=== PATIENT | male | born 1985 | race African-American/Black ===

== ENCOUNTER 2017-03-03 20:16 | Emergency (ER) | payer SELFPAY ==
[2017-03-03 21:21] VITALS: BP 131/83
[2017-03-03] MEDS ORDERED: IBUPROFEN 800 MG TABLET PO ONE (21:59)
--- NOTE | 2017-03-03 22:00 | ER Document Report ---
HPI - HPI Patient complains to provider of: headache, vomiting Onset: Other - 4days Pain Level: 4 Context: Patient presents to the emergency department with complaints of head hurting throwing up on and off since Thursday. Reports vomited last time Thursday. Denies fever. Reports he wakes up he'll have a headache he'll take some Tylenol and headache will go away but it comes back. Patient does have history of high blood pressure and is taking medication for it. Denies trauma. No vomiting today, denies abdominal pain. Associated Symptoms: Vomiting Exacerbated by: Denies Relieved by: Denies Similar symptoms previously: No Recently seen / treated by doctor: No - REPRODUCTIVE Reproductive: DENIES: : - DERM Skin Color: Normal Past Medical History - General Information source: Patient - Social History Smoking Status: Unknown if Ever Smoked Cigarette use (# per day): No Frequency of alcohol use: None Drug Abuse: None Lives with: Family Family History: DM, Hypertension Patient has suicidal ideation: No Patient has homicidal ideation: No - Past Medical History Cardiac Medical History: Reports: Hx Hypertension - on meds Denies: Hx Coronary Artery Disease, Hx Heart Attack Pulmonary Medical History: Denies: Hx Asthma, Hx Bronchitis, Hx COPD, Hx Pneumonia Neurological Medical History: Denies: Hx Cerebrovascular Accident, Hx Seizures Renal/ Medical History: Denies: Hx Peritoneal Dialysis Musculoskeltal Medical History: Denies Hx Arthritis, Reports Hx Musculoskeletal Deformity Traumatic Medical History: Reports: Hx Fractures - ulnar Past Surgical History: Reports: Hx Orthopedic Surgery - orif left ulnar - Immunizations Immunizations up to date: No Hx Diphtheria, Pertussis, Tetanus Vaccination: Yes Vertical Provider Document - CONSTITUTIONAL Agree With Documented VS: Yes Exam Limitations: No Limitations General Appearance: WD/WN, No Apparent Distress - INFECTION CONTROL TRAVEL OUTSIDE OF THE [place] IN LAST 30 DAYS: No - HEENT HEENT: Atraumatic, Normocephalic, PERRLA. negative: Conjuctival Injection - NECK Neck: Normal Inspection, Supple. negative: Lymphadenopathy-Left, Lymphadenopathy-Right - RESPIRATORY Respiratory: Breath Sounds Normal, No Respiratory Distress O2 Sat by Pulse Oximetry: 99 - CARDIOVASCULAR Cardiovascular: Regular Rate, Regular Rhythm - GI/ABDOMEN Gastrointestinal: Abdomen Soft, Abdomen Non-Tender - MUSCULOSKELETAL/EXTREMETIES Musculoskeletal/Extremeties: HOA BLOOM - NEURO Level of Consciousness: Awake, Alert, Appropriate Motor/Sensory: No Motor Deficit - DERM Integumentary: Warm, Dry Course - Vital Signs Vital signs: Temp Pulse Resp BP Pulse Ox 97.6 F 72 18 131/83 H 99 03/03/17 21:17 03/03/17 21:17 03/03/17 21:17 03/03/17 21:17 03/03/17 21:17 Discharge - Discharge Clinical Impression: Elevated blood pressure reading Headache Qualifiers: Headache type: unspecified Headache chronicity pattern: unspecified pattern Intractability: not intractable Qualified Code(s): R51 - Headache Condition: Stable Disposition: HOME, SELF-CARE Instructions: Headache ([facility]), Use of Diphenhydramine, Use of Udih-Bri-Hdvedxu Ibuprofen ([facility]) Additional Instructions: *You have been evaluated for headache, elevated blood pressure reading *Take ibuprofen as indicated *Monitor your blood pressure *Follow up with a primary care provider within one week for recheck *Return to ED for worsening condition, changes, needs *Return to ED if not better in 24 hours Monitor your blood pressure. Your blood pressure was elevated today. This may be because you were anxious, in pain or because you need medication. It is important to follow up with your primary care provider for full evaluation. Forms: Elevated Blood Pressure
== END 2017-03-03 22:57 | disposition home or self-care (01) ==
LOC: ER 20:16
DX: R03.0 Elevated blood-pressure reading, without diagnosis of hypertension (principal); R51 Headache; R11.10 Vomiting, unspecified
CPT/HCPCS: 99283

== ENCOUNTER 2017-04-21 20:49 | Emergency (ER) | payer SELFPAY ==
--- NOTE | 2017-04-21 23:07 | RADIOLOGY REPORT (SQ) ---
EXAM DESCRIPTION: FOREARM LEFT COMPLETED DATE/TIME: 04/21/2017 10:54 pm REASON FOR STUDY: fall COMPARISON: 11/25/2016 NUMBER OF VIEWS: Two views. TECHNIQUE: Two radiographic images acquired of the left forearm, including elbow and wrist in at [address] one projection. LIMITATIONS: None. FINDINGS: MINERALIZATION: Normal. BONES: The patient has re- fractured the proximal ulna. There is re- mild wing from prior fracture. The indwelling hardware is now displaced. The proximal ulnar fracture is now displaced compared to most recent study done October. The radial head is displaced laterally as well. SOFT TISSUES: There is diffuse soft tissue swelling. OTHER: No other significant finding. IMPRESSION: The patient has refractured the proximal ulna. Orthopedic hardware is displaced compare d to the prior films done in October. There is diffuse soft tissue swelling surrounding the fractur e site. TECHNICAL DOCUMENTATION: JOB ID: [id number] [employer]- All Rights Reserved
[2017-04-21] MEDS ORDERED: OXYCODONE-ACETAMINOPHEN 5-325 MG TABLET PO ONE (23:19)
[2017-04-21] MEDS ORDERED: HYDROCODONE/ACETAMINOPHEN 5-325 MG 6 TAB/DSPK PO PRN (23:19)
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
[2017-04-22 00:20] VITALS: BP 146/94
== END 2017-04-22 00:22 | disposition home or self-care (01) ==
LOC: ER 20:49
PROC: 2W3DX1Z Immobilization of Left Lower Arm using Splint (ICD-10-PCS; principal; 2017-04-21)
DX: S52.002A Unspecified fracture of upper end of left ulna, initial encounter for closed fracture (principal); W01.0XXA Fall on same level from slipping, tripping and stumbling without subsequent striking against object, initial encounter; Y92.009 Unspecified place in unspecified non-institutional (private) residence as the place of occurrence of the external cause; Z98.890 Other specified postprocedural states; I10 Essential (primary) hypertension
CPT/HCPCS: 99283

== ENCOUNTER 2017-04-28 09:57 | Observation (INO) | payer SELFPAY ==
[2017-04-24 13:04] LABS: ABSOLUTE EOSINOPHILS # (AUTO) 0.1 10^3/uL (0.0-0.6); ABSOLUTE LYMPHOCYTES (AUTO) 1.5 10^3/uL (0.5-4.7); ABSOLUTE MONOCYTES (AUTO) 0.5 10^3/uL (0.1-1.4); ABSOLUTE NEUT (AUTO) 3.3 10^3/uL (1.7-8.2); BASOPHILS % (AUTO) 0.6 % (0-2); EOSINOPHILS % (AUTO) 2.3 % (0-6); HEMATOCRIT 40.3 % (37.9-51.0); HEMOGLOBIN 13.3 g/dL (13.5-17.0); HGB HCT DIFFERENCE -0.4; LYMPHOCYTES % (AUTO) 27.8 % (13-45); MEAN CORPUSCULAR VOLUME 88 fl (80-97); MONOCYTES % (AUTO) 8.9 % (3-13); RED BLOOD COUNT 4.59 10^6/uL (4.35-5.55); RED CELL DISTRIBUTION WIDTH 14.5 % (11.5-14.0); SEGMENTED NEUTROPHILS % (AUTO) 60.4 % (42-78); WHITE BLOOD COUNT 5.5 10^3/uL (4.0-10.5)
[2017-04-24 13:17] LABS: APPEARANCE,URINE CLEAR; BILIRUBIN,URINE NEGATIVE (NEGATIVE); GLUCOSE, URINE NEGATIVE (NEGATIVE); KETONES,URINE NEGATIVE (NEGATIVE); LEUKOCYTE ESTERASE,URINE NEGATIVE (NEGATIVE); NITRITE,URINE NEGATIVE (NEGATIVE); PROTEIN,URINE NEGATIVE (NEGATIVE); URINE SPECIFIC GRAVITY 1.021; UROBILINOGEN,URINE NEGATIVE mg/dL (<2.0)
[2017-04-24 13:31] LABS: ANION GAP 12 (5-19); BLOOD UREA NITROGEN 11 mg/dL (7-20); CALCIUM 9.3 mg/dL (8.4-10.2); CARBON DIOXIDE 28 mmol/L (22-30); CHLORIDE 103 mmol/L (98-107); CREATININE RESULT 1.02 mg/dL (0.52-1.25); GLUCOSE 86 mg/dL (75-110); POTASSIUM 3.9 mmol/L (3.6-5.0); SODIUM 142.6 mmol/L (137-145)
--- NOTE | 2017-04-24 20:31 | EKG REPORT ---
SEVERITY:- OTHERWISE NORMAL ECG - SINUS RHYTHM BORDERLINE LEFT AXIS DEVIATION : Confirmed by: Erickson Ballard MD 24-Apr-2017 20:31:07
[~2017-04-28 09:57] MED LIST: DEXAMETHASONE SOD PHOSPHATE INJ 4 MG/1 ML VIAL ONE; LIDOCAINE 2% INJ-PF (20 MG/ML) 10 ML AMPUL ONE; METOCLOPRAMIDE HCL INJ/PF 10 MG/2 ML SDV ONE; ONDANSETRON HCL INJ/PF 4 MG/2 ML SDV ONE; SUCCINYLCHOLINE CHLORIDE INJ 200 MG/10 ML VIAL ONE
[2017-04-28] MEDS ORDERED: CEFAZOLIN 2 GM/D5W RTU 2 GM/50 ML RTUPB IV PRN (10:16)
--- NOTE | 2017-04-28 10:54 | RADIOLOGY REPORT (SQ) ---
EXAM DESCRIPTION: CHEST SINGLE VIEW COMPLETED DATE/TIME: 04/28/2017 10:34 am REASON FOR STUDY: PRE OP- ASU ROOM #8 COMPARISON: Two-view chest 12/06/2013, 07/30/2012 EXAM PARAMETERS: NUMBER OF VIEWS: One view. TECHNIQUE: Single frontal radiographic view of the chest acquired. RADIATION DOSE: NA LIMITATIONS: None. FINDINGS: LUNGS AND PLEURA: No opacities, masses or pneumothorax. No pleural effusion. MEDIASTINUM AND HILAR STRUCTURES: No masses. Contour normal. HEART AND VASCULAR STRUCTURES: Heart normal in size. Normal vasculature. BONES: No acute findings. HARDWARE: None in the chest. OTHER: No other significant finding. IMPRESSION: NO ACUTE RADIOGRAPHIC FINDING IN THE CHEST. TECHNICAL DOCUMENTATION: JOB ID: [id number]
[2017-04-28] MEDS: VANCOMYCIN HCL 1,000 MG in DEXTROSE 5%-WATER 250 ML IV PRN ×2 (11:18→23:15)
[2017-04-28] MEDS ORDERED: MIDAZOLAM 2 MG/2 ML INJ ONE ×2 (11:22→12:01)
[2017-04-28] MEDS ORDERED: PROPOFOL INJ 200 MG/20 ML VIAL IV ONE (12:01)
[2017-04-28] MEDS ORDERED: EPHEDRINE SULFATE INJ 50 MG/1 ML AMPULE ONE (12:01)
[2017-04-28] MEDS ORDERED: DEXMEDETOMIDINE INJ 80 MCG/20 ML VIAL IV ONE (12:01)
[2017-04-28] MEDS ORDERED: ACETAMINOPHEN 100 ML IV ONE (12:01)
[2017-04-28] MEDS ORDERED: FENTANYL CITRATE INJ/PF 250 MCG/5 ML AMPULE ONE (12:01)
[2017-04-28] MEDS ORDERED: MORPHINE SULFATE 10 MG/ML INJ ONE (12:02)
--- NOTE | 2017-04-28 12:45 | Progress Note ---
Provider Note Provider Note: Discussed possibility of requiring autograft at fracture site options including iliac crest vs proximal tibial bone graft. I recommended autograft given the revision nature of the surgery and his delay in union previously. Patient was adamantly against harvesting bone graft. The decision was made to proceed with revision ORIF without autograft patient understands he is at risk for nonunion with allograft which is further compounded by the patient's social issues including tobacco smoking which increases his risk of nonunion. I once again discussed the negative effects of tobacco on bone healing and overall health.
[2017-04-28] MEDS ORDERED: DIPHENHYDRAMINE HCL 50 MG/ML VIAL IV PRN (13:27)
[2017-04-28] MEDS ORDERED: ONDANSETRON HCL INJ/PF 4 MG/2 ML SDV IV PRN ×2 (13:27→18:47)
[2017-04-28] MEDS ORDERED: PROMETHAZINE HCL INJ 25 MG/1 ML VIAL IV PRN ×2 (13:27)
[2017-04-28] MEDS ORDERED: MEPERIDINE HCL/PF INJ 25 MG/1 ML DISP.SYRIN IV PRN (13:27)
[2017-04-28] MEDS ORDERED: MORPHINE SULFATE 10 MG/ML INJ IV PRN (13:27)
[2017-04-28] MEDS ORDERED: FENTANYL CITRATE INJ/PF 100 MCG/2 ML AMPUL IV PRN ×3 (13:27)
[2017-04-28] MEDS ORDERED: BUPIVACAINE HCL 0.5 % INJ/PF 30 ML SDV INJ ONE (13:52)
[2017-04-28] MEDS ORDERED: METOPROLOL TARTRATE PF/INJ 5 MG/5 ML SDV IV ONE (15:09)
[2017-04-28] MEDS ORDERED: HYDROMORPHONE HCL INJ/PF 2 MG/ML AMPULE ONE ×2 (16:07→19:02)
[2017-04-28] MEDS ORDERED: CEFAZOLIN INJ 1 GM VIAL ONE (17:40)
--- NOTE | 2017-04-28 18:19 | PDOC DISCHARGE SUMMARY ---
Discharge Summary (SDC) - Discharge Final Diagnosis: Right Ulnar Shaft Nonunion, Chronic Monteggia Date of Surgery: 04/28/17 Discharge Date: 04/28/17 Condition: Good Treatment or Instructions: Schedule Follow Up w/ Dr. Otis Isaac @ [facility] for Surgery to be seen in 10-14 days or as scheduled [place]: [place]: [place]: Keep splint clean/dry/intact. Ice and elevate May begin finger range of motion attempting to make full fist. Stool softener of choice when on pain medication. Prescriptions: Oxycodone HCl [Oxycontin] 20 mg PO BID PRN #20 tab.sr.12h PRN Reason: Oxycodone HCl/Acetaminophen [Percocet 10-325 mg Tablet] 1 each PO Q6 PRN #30 tablet PRN Reason: Discharge Diet: As Tolerated Respiratory Treatments at Home: Deep Breathing/Coughing, Incentive Spirometer Discharge Activity: No Lifting Over 10 Pounds, No Lifting/Push/Pulling Report the Following to Your Physician Immediately: Fever over 101 Degrees, Unusual Bleeding, Redness, Swelling, Warmth, Increased Soreness
[2017-04-28] MEDS ORDERED: LABETALOL HCL INJ 20 MG/4 ML DISP.SYRIN IV ONE (18:38)
[2017-04-28] MEDS ORDERED: OXYCODONE-ACETAMINOPHEN 5-325 MG TABLET PO PRN (18:47)
[2017-04-28] MEDS ORDERED: HYDROMORPHONE HCL INJ/PF 2 MG/ML AMPULE IV PRN (18:47)
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
[2017-04-28] MEDS ORDERED: IBUPROFEN INJ 800 MG/8 ML VIAL IV ONE (19:06)
[2017-04-28] MEDS ORDERED: IBUPROFEN 800 MG in NORMAL SALINE 250 ML IV ONE (19:30)
--- NOTE | 2017-04-28 21:05 | RADIOLOGY REPORT (SQ) ---
EXAM DESCRIPTION: FOREARM LEFT COMPLETED DATE/TIME: 04/28/2017 8:06 pm REASON FOR STUDY: ORIF LT FOREARM/IMPLANT S52.272S MONTEGGIA'S FRACTURE OF LEFT ULNA, SEQUELA S49.9 0XD UNSP INJURY OF SHOULDER AND UPPER ARM, UNSP ARM, ROMANO COMPARISON: None. FLUOROSCOPY TIME: 0.8 minutes 13 images saved to PACS. TECHNIQUE: Intra-operative images acquired during surgical procedure to evaluate progress. NUMBER OF IMAGES: 13 U LIMITATIONS: None. FINDINGS: Fluoroscopic images were obtained during internal fixation of the left forearm. IMPRESSION: IMAGE(S) OBTAINED DURING PROCEDURE. COMMENT: Quality ID [id number]: Final reports for procedures using fluoroscopy that document radiation exp osure indices, or exposure time and number of fluorographic images (if radiation exposure indices are not available) Please consult full operative report of the attending physician for description of the procedure. TECHNICAL DOCUMENTATION: JOB ID: [id number] [employer]- All Rights Reserved
--- NOTE | 2017-04-28 21:06 | RADIOLOGY REPORT (SQ) ---
EXAM DESCRIPTION: NO CHG FLUORO COMPLETE DATE/TIME: 04/28/2017 8:06 pm REASON FOR STUDY: ORIF LT FOREARM/IMPLANT S52.272S MONTEGGIA'S FRACTURE OF LEFT ULNA, SEQUELA S49.9 0XD UNSP INJURY OF SHOULDER AND UPPER ARM, UNSP ARM, ROMANO FINDINGS: Please see combined report for performance of procedure and radiologic supervision and int erpretation. IMPRESSION: Please see combined report for performance of procedure and radiologic supervision and i nterpretation.
[2017-04-28] MEDS: CEFAZOLIN 2 GM/D5W RTU 50 ML IV SCH (23:20)
[2017-04-29] MEDS: CEFAZOLIN 2 GM/D5W RTU 50 ML IV SCH (05:47)
[2017-04-29 07:55] VITALS: BP 105/60
== END 2017-04-29 10:11 | disposition home or self-care (01) ==
LOC: OROUT 09:57 → 5 20:26
PROVIDERS: ADMIT Orthopaedic Surgery; ATTEND Orthopaedic Surgery
PROC: 0RU Upper Joints, Supplement (ICD-10-PCS; 2017-04-28)
PROC: 0PSL04Z Reposition Left Ulna with Internal Fixation Device, Open Approach (ICD-10-PCS; principal; 2017-04-28 11:45)
PROC: 0PPL04Z Removal of Internal Fixation Device from Left Ulna, Open Approach (ICD-10-PCS; 2017-04-28 11:45)
DX: S52.272A Monteggia's fracture of left ulna, initial encounter for closed fracture (principal); W01.0XXA Fall on same level from slipping, tripping and stumbling without subsequent striking against object, initial encounter; Y92.009 Unspecified place in unspecified non-institutional (private) residence as the place of occurrence of the external cause; M19.022 Primary osteoarthritis, left elbow; I10 Essential (primary) hypertension; Z79.899 Other long term (current) drug therapy; Z98.890 Other specified postprocedural states
CPT/HCPCS: 25405; 20680; 24366; 93005; 36415 ×2; 87070; 87205; 84132; 85025; 87075; 80048; 81001; 71010; 73090; 93010; C1898; C1713; J2250; J0690 ×2; J1100; J3490 ×5; J3010; J2765; J1170; J0330; J2405; J7060; J2704; J3370; J0131; J1741; 01740; 01820; J2270

== ENCOUNTER 2017-07-01 10:01 | Emergency (ER) | payer SELFPAY ==
[2017-07-01 10:10] VITALS: BP 153/106
[2017-07-01] MEDS ORDERED: KETOROLAC TROMETHAMINE 60 MG/2 ML SDV IM ONE (10:28)
[2017-07-01] MEDS ORDERED: DEXAMETHASONE SOD PHOS INJ 10 MG/1 ML VIAL IM ONE (10:28)
--- NOTE | 2017-07-01 10:34 | ER Document Report ---
ED Neck/Back Problem - General Chief Complaint: Back Pain Stated Complaint: BACK PAIN Time Seen by Provider: 07/01/17 10:21 Notes: 32 yo male with hx/o sciatica c/o pain to right hip radiating to right knee x 3 days. feels familiar to previous sciatic flares. denies trauma, fever, bowel/ bladder dysfunction. no paresthesias TRAVEL OUTSIDE OF THE [place] IN LAST 30 DAYS: No - HPI Patient complains to provider of: Pain Pain Level: 4 Recent injury: No Associated symptoms: None Exacerbated by: Other - any movement - Related Data Allergies/Adverse Reactions: No Known Allergies Allergy (Verified 03/03/17 21:16) Past Medical History - General Information source: Patient - Social History Smoking Status: Current Every Day Smoker Frequency of alcohol use: Occasional Drug Abuse: None Occupation: unemployed Family History: DM, Hypertension Patient has suicidal ideation: No Patient has homicidal ideation: No - Past Medical History Cardiac Medical History: Reports: Hx Hypertension - on meds Denies: Hx Coronary Artery Disease, Hx Heart Attack Pulmonary Medical History: Denies: Hx Asthma, Hx Bronchitis, Hx COPD, Hx Pneumonia Neurological Medical History: Denies: Hx Cerebrovascular Accident, Hx Seizures Renal/ Medical History: Denies: Hx Peritoneal Dialysis Musculoskeltal Medical History: Denies Hx Arthritis, Reports Hx Musculoskeletal Deformity Traumatic Medical History: Reports: Hx Fractures - ulnar Past Surgical History: Reports: Hx Orthopedic Surgery - orif left ulnar - Immunizations Immunizations up to date: No Hx Diphtheria, Pertussis, Tetanus Vaccination: Yes Review of Systems - Review of Systems Constitutional: No symptoms reported EENT: No symptoms reported Cardiovascular: No symptoms reported Respiratory: No symptoms reported Gastrointestinal: No symptoms reported Genitourinary: No symptoms reported Male Genitourinary: No symptoms reported Musculoskeletal: See HPI, Back pain Skin: No symptoms reported Hematologic/Lymphatic: No symptoms reported Neurological/Psychological: No symptoms reported Physical Exam - Vital signs Vitals: Temp Pulse Resp BP Pulse Ox 97.7 F 74 18 153/106 H 99 07/01/17 10:07 07/01/17 10:07 07/01/17 10:07 07/01/17 10:07 07/01/17 10:07 Interpretation: Normal - General General appearance: Appears well, Alert - HEENT Head: Normocephalic, Atraumatic Eyes: Normal Pupils: PERRL - Respiratory Respiratory status: No respiratory distress Chest status: Nontender Breath sounds: Normal Chest palpation: Normal - Cardiovascular Rhythm: Regular Heart sounds: Normal auscultation Murmur: No - Abdominal Inspection: Normal Distension: No distension Bowel sounds: Normal Tenderness: Nontender Organomegaly: No organomegaly - Back Back: Tender - right lumbar paraspinal tenderness. right SI tenderness. + right SLT. neg heel/toe - Extremities General upper extremity: Normal inspection, Nontender, Normal color, Normal ROM , Normal temperature General lower extremity: Normal inspection, Nontender, Normal color, Normal ROM , Normal temperature, Normal weight bearing. No: Teddy's sign - Neurological Neuro grossly intact: Yes Cognition: Normal Orientation: AAOx4 Monty Coma Scale Eye Opening: Spontaneous [place] Coma Scale Verbal: Oriented [place] Coma Scale Motor: Obeys Commands [place] Coma Scale Total: 15 Speech: Normal Motor strength normal: LUE, RUE, LLE, RLE Sensory: Normal - Psychological Associated symptoms: Normal affect, Normal mood - Skin Skin Temperature: Warm Skin Moisture: Dry Skin Color: Normal Course - Vital Signs Vital signs: Temp Pulse Resp BP Pulse Ox 97.7 F 74 18 153/106 H 99 07/01/17 10:07 07/01/17 10:07 07/01/17 10:07 07/01/17 10:07 07/01/17 10:07 Discharge - Discharge Clinical Impression: Sciatica Qualifiers: Laterality: right Qualified Code(s): M54.31 - Sciatica, right side Condition: Stable Disposition: HOME, SELF-CARE Instructions: Ice Packs ([facility]), Toradol Injection ([facility]), Steroid Medication Injection, Oral Narcotic Medication ([facility]) Additional Instructions: take medications as prescribed follow up with your primary care Prescriptions: Ibuprofen [Motrin 800 Mg Tablet] 800 mg PO Q6H #20 tablet Tramadol HCl [Ultram 50 mg Tablet] 50 mg PO ASDIR PRN #20 tablet PRN Reason:
== END 2017-07-01 11:05 | disposition home or self-care (01) ==
LOC: ER 10:01
DX: M54.31 Sciatica, right side (principal); M54.9 Dorsalgia, unspecified; I10 Essential (primary) hypertension; F17.200 Nicotine dependence, unspecified, uncomplicated
CPT/HCPCS: 99283; 96372; J1885; J1100

== ENCOUNTER 2017-07-11 00:45 | Emergency (ER) | payer SELFPAY ==
[2017-07-11 00:54] VITALS: BP 143/86
[2017-07-11] MEDS ORDERED: KETOROLAC TROMETHAMINE INJ/PF 30 MG/1 ML SDV IM ONE (01:48)
[2017-07-11] MEDS ORDERED: LIDOCAINE 5% (700 MG) TRANSDERMAL ADH..PATCH TP ONE (01:48)
--- NOTE | 2017-07-11 01:55 | ER Document Report ---
HPI - HPI Pain Level: 5 Notes: Patient is a 32-year-old male with a history of chronic low back pain and sciatica who presents the ED complaining of an acute exacerbation 1 day. Patient states that any quick movement sitting or standing too long exacerbates his pain causing a burning sensation down to his left knee. Patient states that sitting still does help, but the pain has been pretty constant. Over-the- counter meds have not helped. He was seen last week and given a Toradol injection along with a steroid injection and sent home on a steroid tapering dose. He still eating and drinking without any difficulties. He denies any other concerns or complaints at this time. Denies any saddle anesthesia, loss of control of bowel or bladder, urinary retention, muscle paralysis/weakness. Denies any headache, fever, chest pain, palpitations, syncope, cough, shortness of breath, wheeze, dyspnea, abdominal pain, nausea/vomiting/diarrhea, dysuria, hematuria, or rash. denies any elicit drug use or procedures to his low back. No h/o diabetes or other immunocompromised condition. - ROS Notes: REVIEW OF SYSTEMS: CONSTITUTIONAL : Denies fever, chills, or sweats. Denies recent illness. EENT: Denies eye, ear, throat, or mouth pain or symptoms. Denies nasal or sinus congestion or discharge. Denies throat, tongue, or mouth swelling or difficulty swallowing. CARDIOVASCULAR: Denies chest pain. Denies palpitations or racing or irregular heart beat. Denies ankle edema. RESPIRATORY: Denies cough, cold, or chest congestion. Denies shortness of breath, difficulty breathing, or wheezing. GASTROINTESTINAL: Denies abdominal pain or distention. Denies nausea, vomiting , or diarrhea. Denies blood in vomitus, stools, or per rectum. Denies black, tarry stools. Denies constipation. GENITOURINARY: Denies difficulty urinating, painful urination, burning, frequency, blood in urine, or discharge. MUSCULOSKELETAL: see hpi SKIN: Denies rash, lesions or sores. NEUROLOGICAL: Denies confusion or altered mental status. Denies passing out or loss of consciousness. Denies dizziness or lightheadedness. Denies headache. Denies weakness or paralysis or loss of use of either side. Denies problems with gait or speech. Denies sensory loss, numbness, or tingling. ALL OTHER SYSTEMS REVIEWED AND NEGATIVE. Dictation was performed using [employer] voice recognition software - REPRODUCTIVE Reproductive: DENIES: : - DERM Skin Color: Normal Past Medical History - Social History Smoking Status: Unknown if Ever Smoked Family History: DM, Hypertension Patient has suicidal ideation: No Patient has homicidal ideation: No - Past Medical History Cardiac Medical History: Reports: Hx Hypertension - on meds Denies: Hx Coronary Artery Disease, Hx Heart Attack Pulmonary Medical History: Denies: Hx Asthma, Hx Bronchitis, Hx COPD, Hx Pneumonia Neurological Medical History: Denies: Hx Cerebrovascular Accident, Hx Seizures Renal/ Medical History: Denies: Hx Peritoneal Dialysis Musculoskeltal Medical History: Denies Hx Arthritis, Reports Hx Musculoskeletal Deformity Traumatic Medical History: Reports: Hx Fractures - ulnar Past Surgical History: Reports: Hx Orthopedic Surgery - orif left ulnar - Immunizations Immunizations up to date: No Hx Diphtheria, Pertussis, Tetanus Vaccination: Yes Vertical Provider Document - CONSTITUTIONAL Agree With Documented VS: Yes Notes: PHYSICAL EXAMINATION: GENERAL: Well-appearing, well-nourished and in no acute distress. LUNGS: Breath sounds clear to auscultation bilaterally and equal. No wheezes rales or rhonchi. HEART: Regular rate and rhythm without murmurs, rubs, gallops. ABDOMEN: Soft, nontender, nondistended abdomen. No guarding, no rebound. No masses appreciated. Normal bowel sounds present. No CVA tenderness bilaterally. No pulsatile mass Musculoskeletal: LE's b/l: FROM to passive/active. Strength 5+/5. Non-tender. Back: mild tenderness paraspinally to the L-spine. + mild left SI jt tenderness. No deformity, step-offs noted. + mild spasming to the L- paraspinal. Extremities: No cyanosis, clubbing, or edema b/l. Peripheral pulses 2+. Capillary refill less than 3 seconds. NEUROLOGICAL: Normal speech, normal gait. Normal sensory, motor exams. Reflexes 2+ b/l. SLR neg b/l. PSYCH: Normal mood, normal affect. SKIN: Warm, Dry, normal turgor, no rashes or lesions noted. - INFECTION CONTROL TRAVEL OUTSIDE OF THE [place] IN LAST 30 DAYS: No - RESPIRATORY O2 Sat by Pulse Oximetry: 98 Course - Re-evaluation Re-evalutation: 07/11/17 01:53 Patient is an afebrile, well-hydrated, 32-year-old male who presents the ED with an acute exacerbation of low back pain/sciatica. Vitals are stable. PE otherwise unremarkable for any focal neurological deficits. Low suspicion for any meningitis, fracture, expanding/ruptured AAA, cauda equina syndrome, epidural mass lesion/abscess, herniated disc causing severe spinal stenosis, or other systemic infection at this time. Patient is aware that his condition can change from initial presentation and that he needs monitor symptoms closely for any acute changes. Patient was noted to have been given narcotics over the last several months for his condition, although patient denied being seen by anyone during that time. Advised that I am not going to prescribe any narcotics for his condition & that it is not warranted. I will give him 15 mg Toradol IM and send him home with Voltaren gel and baclofen. Lidoderm patch applied today as well. Advised using ice and heat and other conservative measures. Consider consult with orthopedics, physical therapy, chiropractics. Recheck/establish with PCM this week. Return to the ED with any worsening/ concerning symptoms otherwise as reviewed discharge. Patient is in agreement. - Vital Signs Vital signs: Temp Pulse Resp BP Pulse Ox 97.7 F 83 18 143/86 H 98 07/11/17 00:51 07/11/17 00:51 07/11/17 00:51 07/11/17 00:51 07/11/17 00:51 Discharge - Discharge Clinical Impression: Low back pain Qualifiers: Chronicity: chronic Back pain laterality: bilateral Sciatica presence: unspecified whether sciatica present Qualified Code(s): M54.5 - Low back pain; G89.29 - Other chronic pain Condition: Stable Disposition: HOME, SELF-CARE Instructions: Ice Packs ([facility]), Low Back Pain ([facility]), Warm Packs ([facility]), Muscle Relaxers ([facility]), Stretching Exercises for the Back ([facility]) Additional Instructions: Rest, Ice Tylenol/ibuprofen as needed Light stretches daily Strength exercises as able Moist heat and massage may help F/u-establish with a PCM this week for a recheck Consider consult(s) with Orthopedics, physical therapy, chiropractics for ongoing/worsening symptoms Return to the ED with any worsening symptoms and/or development of fever, headache, chest pain, palpitations, syncope, shortness of breath, trouble breathing, abdominal pain, n/v/d, blood in stool/urine, loss of control of bowel /bladder, urinary retention, muscle weakness/paralysis, saddle anesthesia, numbness/tingling, or other worsening symptoms that are concerning to you. Prescriptions: Baclofen [Baclofen 10 mg Tablet] 5 mg PO BID PRN #6 tablet PRN Reason: Diclofenac Sodium [Voltaren] 4 gm TP QID PRN #100 gel..gm. PRN Reason: Forms: Elevated Blood Pressure Referrals: [facility] [Provider Group] - Follow up as needed [facility] [Provider Group] - Follow up as needed [facility] [Provider Group] - Follow up as needed
== END 2017-07-11 02:17 | disposition home or self-care (01) ==
LOC: ER 00:45
DX: M54.5 Low back pain (principal); G89.29 Other chronic pain; I10 Essential (primary) hypertension
CPT/HCPCS: 99283; 96372; J1885

== ENCOUNTER 2017-10-18 13:56 | Emergency (ER) | payer SELFPAY ==
[2017-10-18 14:03] VITALS: BP 147/87
== END 2017-10-18 17:37 | disposition left against medical advice (07) ==
LOC: ER 13:56
DX: Z53.9 Procedure and treatment not carried out, unspecified reason (principal); R51 Headache

== ENCOUNTER 2018-02-02 06:56 | Emergency (ER) | payer SELFPAY ==
[2018-02-02] MEDS ORDERED: CYCLOBENZAPRINE HCL 10 MG TABLET PO ONE (07:38)
[2018-02-02] MEDS ORDERED: PREDNISONE 20 MG TABLET PO ONE (07:38)
[2018-02-02] MEDS ORDERED: HYDROCODONE/ACETAMINOPHEN 5-325 MG TABLET PO ONE (07:38)
--- NOTE | 2018-02-02 07:38 | ER Document Report ---
ED General Pain - General Chief Complaint: Back Pain Stated Complaint: BACK PAIN Time Seen by Provider: 02/02/18 07:30 Mode of Arrival: Ambulatory Information source: Patient Notes: Patient is a 32-year-old male who presents to the ER today for right sided sciatica pain. Patient states he has had this before, denies any new injury. He states he has chronic right-sided back issues. He denies any numbness or tingling but states that the pain does shoot down to the back of his knee. He states that he could not sleep at all last night due to the pain. He denies any loss of bladder or bowel function. TRAVEL OUTSIDE OF THE [place] IN LAST 30 DAYS: No - Related Data Allergies/Adverse Reactions: No Known Allergies Allergy (Verified 10/18/17 14:02) Past Medical History - General Information source: Patient - Social History Smoking Status: Unknown if Ever Smoked Family History: DM, Hypertension - Past Medical History Cardiac Medical History: Reports: Hx Hypertension - on meds Denies: Hx Coronary Artery Disease, Hx Heart Attack Pulmonary Medical History: Denies: Hx Asthma, Hx Bronchitis, Hx COPD, Hx Pneumonia Neurological Medical History: Denies: Hx Cerebrovascular Accident, Hx Seizures Renal/ Medical History: Denies: Hx Peritoneal Dialysis Musculoskeltal Medical History: Denies Hx Arthritis, Reports Hx Musculoskeletal Deformity Traumatic Medical History: Reports: Hx Fractures - ulnar Past Surgical History: Reports: Hx Orthopedic Surgery - orif left ulnar - Immunizations Immunizations up to date: No Hx Diphtheria, Pertussis, Tetanus Vaccination: Yes Review of Systems - Review of Systems Constitutional: No symptoms reported EENT: No symptoms reported Cardiovascular: No symptoms reported Respiratory: No symptoms reported Gastrointestinal: No symptoms reported Genitourinary: No symptoms reported Male Genitourinary: No symptoms reported Musculoskeletal: See HPI Skin: No symptoms reported Hematologic/Lymphatic: No symptoms reported Neurological/Psychological: No symptoms reported Physical Exam - Vital signs Vitals: Temp Pulse Resp BP Pulse Ox 98.3 F 84 16 169/104 H 95 02/02/18 07:19 02/02/18 07:19 02/02/18 07:19 02/02/18 07:19 02/02/18 07:19 - Notes Notes: PHYSICAL EXAMINATION: GENERAL: Uncomfortable appearing, but in no acute distress. HEAD: Atraumatic, normocephalic. EYES: Pupils equal round and reactive to light, extraocular movements intact, sclera anicteric, conjunctiva are normal. NECK: Normal range of motion, supple without lymphadenopathy LUNGS: CTAB and equal. No wheezes rales or rhonchi. HEART: Regular rate and rhythm without murmurs BACK: no vertebral tenderness, normal ROM GI/: no CVA tenderness EXTREMITIES: Normal range of motion, no pitting edema. No cyanosis. NEUROLOGICAL: Cranial nerves grossly intact. Normal sensory/motor exams. PSYCH: Normal mood, normal affect. SKIN: Warm, Dry, normal turgor, no rashes or lesions noted Course - Re-evaluation Re-evalutation: 02/02/18 07:36 Patient has had sciatica before, no injury and no tenderness to exam, x-rays are not warranted today. - Vital Signs Vital signs: Temp Pulse Resp BP Pulse Ox 98.3 F 84 16 169/104 H 95 02/02/18 07:19 02/02/18 07:19 02/02/18 07:19 02/02/18 07:19 02/02/18 07:19 Discharge - Discharge Clinical Impression: Right sided sciatica Condition: Stable Disposition: HOME, SELF-CARE Additional Instructions: Return immediately for any new or worsening symptoms. Follow up with primary care provider, call tomorrow to make followup appointment. Prescriptions: Cyclobenzaprine HCl [Flexeril 10 mg Tablet] 10 mg PO TIDP PRN #15 tab PRN Reason: Ibuprofen [Motrin 800 mg Tablet] 800 mg PO Q8H PRN #30 tab PRN Reason: Prednisone 40 mg PO DAILY #10 tablet Forms: Return to Work
[2018-02-02] MEDS ORDERED: KETOROLAC TROMETHAMINE 60 MG/2 ML SDV IM ONE (07:45)
[2018-02-02 08:16] VITALS: BP 158/96
== END 2018-02-02 08:16 | disposition home or self-care (01) ==
LOC: ER 06:56
DX: M54.31 Sciatica, right side (principal); I10 Essential (primary) hypertension
CPT/HCPCS: 99283; 96372; J1885

== ENCOUNTER 2018-11-18 22:04 | Emergency (ER) | payer SELFPAY ==
--- NOTE | 2018-11-18 22:56 | ER Document Report ---
ED Skin Rash/Insect Bite/Abscs - General Chief Complaint: Skin Problem Stated Complaint: BACK PAIN Time Seen by Provider: 11/18/18 22:22 Mode of Arrival: Ambulatory Information source: Patient, Relative Notes: PHYSICAL EXAMINATION: GENERAL: Patient is a well-nourished well-developed 33-year-old male who is in no apparent distress this evening. HEAD: Atraumatic, normocephalic.. NECK: Normal range of motion, supple without lymphadenopathy LUNGS: Breath sounds clear to auscultation bilaterally and equal. No wheezes rales or rhonchi. HEART: Regular rate and rhythm without murmurs ABDOMEN: Soft, nontender, nondistended abdomen. No guarding, no rebound. No masses appreciated. Musculoskeletal: Normal range of motion, no pitting or edema. No cyanosis. NEUROLOGICAL: Normal speech, normal gait. Normal sensory, motor exams PSYCH: Normal mood, normal affect. SKIN: patient's area of concern is in the middle of his back between his shoulder blades right along the spinal column. It is approximately upper thoracic area. It is almost between the shoulder blades. It is an area that extends crossways mid center of the spinal column approximately 6 cm. It is about 2-1/2 cm wide. It is blackish discoloration to it with a center that is even more dark black. Palpation of it is firm there is no erythema to it is no fluctuance there is mild induration TRAVEL OUTSIDE OF THE [place] IN LAST 30 DAYS: No - HPI Patient complains to provider of: Skin rash/lesion Onset: Other - 2-month Onset/Duration: Gradual Quality of pain: Achy, Sharp Severity: Moderate Pain Level: 3 Skin Character: Linear, Macules, Tenderness, Thickening Skin Temperature: Warm Quality of rash: Painful Identify cause: No Similar symptoms previously: Yes Recently seen / treated by doctor: No - Related Data Allergies/Adverse Reactions: No Known Allergies Allergy (Verified 10/18/17 14:02) Past Medical History - General Information source: Patient, Relative - Social History Smoking Status: Never Smoker Cigarette use (# per day): No Chew tobacco use (# tins/day): No Smoking Education Provided: No Frequency of alcohol use: Rare Drug Abuse: None Lives with: Spouse/Significant other Family History: Reviewed & Not Pertinent, DM, Hypertension Patient has suicidal ideation: No Patient has homicidal ideation: No - Past Medical History Cardiac Medical History: Reports: Hx Hypertension - on meds Denies: Hx Coronary Artery Disease, Hx Heart Attack Pulmonary Medical History: Denies: Hx Asthma, Hx Bronchitis, Hx COPD, Hx Pneumonia Neurological Medical History: Denies: Hx Cerebrovascular Accident, Hx Seizures Renal/ Medical History: Denies: Hx Peritoneal Dialysis Musculoskeletal Medical History: Denies Hx Arthritis, Reports Hx Musculoskeletal Deformity Traumatic Medical History: Reports: Hx Fractures - ulnar Past Surgical History: Reports: Hx Orthopedic Surgery - orif left ulnar - Immunizations Immunizations up to date: No Hx Diphtheria, Pertussis, Tetanus Vaccination: Yes Review of Systems - Review of Systems Constitutional: No symptoms reported EENT: No symptoms reported Cardiovascular: No symptoms reported Respiratory: No symptoms reported Gastrointestinal: No symptoms reported Genitourinary: No symptoms reported Male Genitourinary: No symptoms reported Musculoskeletal: No symptoms reported Skin: Lesions Hematologic/Lymphatic: No symptoms reported Neurological/Psychological: No symptoms reported -: Yes All other systems reviewed and negative Physical Exam - Vital signs Vitals: Temp Pulse Resp BP Pulse Ox 98.4 F 62 16 154/98 H 97 11/18/18 22:09 11/18/18 22:09 11/18/18 22:09 11/18/18 22:09 11/18/18 22:09 Interpretation: Hypertensive - Notes Notes: Physical exam some of the displaced into the HPI area. It would not copy and pasted this area is pleased with very poor please Course - Re-evaluation Re-evalutation: 11/18/18 23:35 After looking at patient's area of concern I was concerned that his presentation was possibly a melanoma or another presentation of skin cancer that no way to figure it out and this was biopsied. I was concerned that patient needs to follow-up with a power equipment technology instructor I printed him out a list of them antibiotic also given him suggestions about [facility] and also on establishing with a primary care provider that does biopsies. Patient did inform me that he had popped it once and there was like a big black seed to came out and in the next time he got a little white pus but that was all in the stated that she had just a little blood the time she tried to squeeze it. The area is very tender to palpate. - Vital Signs Vital signs: Temp Pulse Resp BP Pulse Ox 98.4 F 62 16 154/98 H 97 11/18/18 22:09 11/18/18 22:09 11/18/18 22:09 11/18/18 22:09 11/18/18 22:09 Discharge - Discharge Clinical Impression: Skin lesion of back Condition: Stable Disposition: HOME, SELF-CARE Additional Instructions: This type of lesions one that you get concerned about when it has popped up recent and that has changed in his presentation. I cannot tell you exactly what it is but you will need to see power equipment technology instructor to have it biopsied. This means cut out and sent to the pathologist where they can look at it under microscope I can tell you exactly what it is. The location of it seems to bother me as well because it is right on top of your spinal column which may not have any bearing on this matter whatsoever but with you telling me that it is very tender to and painful I would highly recommend the follow-up with power equipment technology instructor. If you have a primary doctor some primary doctors do do biopsy so you may discuss it with them before going out and try to get an appointment with power equipment technology instructor. I have supplied you with a sheet of the power equipment technology instructor here in [place] that I can find. You may contact their offices to see if any of them can work with you. If they cannot I would highly recommend that you establish with a primary care provider. If you do not have one you may try the [facility] they sometimes able to get you specialist that you may not build to see on your own. In any event this is something we cannot fix out of ER and is something that definitely needs to be addressed. So please follow-up with 1 of those 2 ways either of establish with a primary care provider that does biopsies to send out or follow-up with a power equipment technology instructor or start at the [facility]. We are always here in ER if you have any concerns or problems or if this thing starts to spread and before you can get into see someone return to ER for recheck. Forms: Elevated Blood Pressure Referrals: [facility] [NO LOCAL MD] - Follow up as needed
[2018-11-18 23:31] VITALS: BP 154/94
== END 2018-11-18 23:10 | disposition home or self-care (01) ==
LOC: ER 22:04
DX: L98.9 Disorder of the skin and subcutaneous tissue, unspecified (principal); M54.9 Dorsalgia, unspecified
CPT/HCPCS: 99283

== ENCOUNTER 2018-12-12 04:21 | Emergency (ER) | payer SELFPAY ==
[2018-12-12 04:28] VITALS: BP 164/103
== END 2018-12-12 05:37 | disposition left against medical advice (07) ==
LOC: ER 04:21
DX: Z53.21 Procedure and treatment not carried out due to patient leaving prior to being seen by health care provider (principal)

== ENCOUNTER 2018-12-17 03:28 | Emergency (ER) | payer SELFPAY ==
--- NOTE | 2018-12-17 04:08 | ER Document Report ---
ED General - General Mode of Arrival: Ambulatory Information source: Patient TRAVEL OUTSIDE OF THE [place] IN LAST 30 DAYS: No <SEVERIANO BERMEO - Last Filed: 12/17/18 04:58> <JERRY TREVIÑO - Last Filed: 12/17/18 07:51> - General Chief Complaint: Vomiting Stated Complaint: VOMITING Time Seen by Provider: 12/17/18 03:59 Notes: 33 year old male that presents today with complaints of a headache with associated vomiting. Patient states his headache began around 1 this evening and has been pretty constant since onset. Patient states that after a few episodes of vomiting he began to notice blood streaks in his vomit but did not have a handful of blood with all of it combined. Patient states his headache today feels like his usual headaches. (SEVERIANO BERMEO) - Related Data Allergies/Adverse Reactions: No Known Allergies Allergy (Verified 12/12/18 04:58) Past Medical History - General Information source: Patient - Social History Smoking Status: Never Smoker Cigarette use (# per day): No Chew tobacco use (# tins/day): No Frequency of alcohol use: None Drug Abuse: None Lives with: Family Family History: Reviewed & Not Pertinent, DM, Hypertension Patient has suicidal ideation: No Patient has homicidal ideation: No - Past Medical History Cardiac Medical History: Reports: Hx Hypertension - on meds Musculoskeletal Medical History: Reports Hx Musculoskeletal Deformity Traumatic Medical History: Reports: Hx Fractures - ulnar Past Surgical History: Reports: Hx Orthopedic Surgery - orif left ulnar - Immunizations Immunizations up to date: No Hx Diphtheria, Pertussis, Tetanus Vaccination: Yes <SEVERIANO BERMEO - Last Filed: 12/17/18 04:58> Review of Systems - Review of Systems Constitutional: No symptoms reported EENT: No symptoms reported Cardiovascular: No symptoms reported Respiratory: No symptoms reported Gastrointestinal: See HPI, Nausea, Vomiting, Blood in vomit Genitourinary: No symptoms reported Male Genitourinary: No symptoms reported Musculoskeletal: No symptoms reported Skin: No symptoms reported Hematologic/Lymphatic: No symptoms reported Neurological/Psychological: See HPI, Headaches -: Yes All other systems reviewed and negative <SEVERIANO BERMEO - Last Filed: 12/17/18 04:58> Physical Exam <SEVERIANO BERMEO - Last Filed: 12/17/18 04:58> - Neurological Cranial nerves: Normal <JERRY TREVIÑO - Last Filed: 12/17/18 07:51> - Vital signs Vitals: Temp Pulse Resp BP Pulse Ox 97.4 F 86 19 172/118 H 100 12/17/18 03:41 12/17/18 03:41 12/17/18 03:41 12/17/18 03:41 12/17/18 03:41 - Notes Notes: PHYSICAL EXAM GENERAL: Alert, interacts well. No acute distress. HEAD: Normocephalic, atraumatic. EYES: Pupils equal, round, and reactive to light. Extraocular movements intact. ENT: Oral mucosa moist, tongue midline. NECK: Full range of motion. Supple. Tra seun midline. LUNGS: Clear to auscultation bilaterally, no wheezes, rales, or rhonchi. No respiratory distress. HEART: Regular rate and rhythm. No murmurs, gallops, or rubs. ABDOMEN: Soft, non-tender. Non-distended. Bowel sounds present in all 4 quadrants. No guarding, rigidity, or rebound. EXTREMITIES: Moves all 4 extremities spontaneously. No edema, radial and dorsalis pedis pulses 2/4 bilaterally. No cyanosis. NEUROLOGICAL: Alert and oriented x3. Normal speech. PSYCH: Normal affect, normal mood. SKIN: Warm, dry, normal turgor. No rashes or lesions noted. (SEVERIANO BERMEO) Course - Laboratory Result Diagrams: 12/17/18 04:05 12/17/18 04:05 <JERRY TREVIÑO - Last Filed: 12/17/18 07:51> - Re-evaluation Re-evalutation: 12/17/18 06:44 CBC unremarkable, no anemia, CMP only shows slight low potassium at 3.1 otherwise unremarkable, lipase normal. Patient has had 2 more episodes of vomiting since he saw the blood and that has since resolved. Patient has had no more blood, has no more vomiting in the is no pain. Patient will be started on antacids and discharged home. Recommended to follow-up with GI, recommend to return should he have further hematemesis. (JERRY TREVIÑO) - Vital Signs Vital signs: Temp Pulse Resp BP Pulse Ox 97.7 F 86 15 149/103 H 100 12/17/18 07:33 12/17/18 03:41 12/17/18 04:01 12/17/18 07:33 12/17/18 07:33 - Laboratory Laboratory results interpreted by me: 12/17/18 12/17/18 04:05 04:05 RDW 14.6 H Potassium 3.1 L Discharge <SEVERIANO BERMEO - Last Filed: 12/17/18 04:58> <JERRY TREVIÑO - Last Filed: 12/17/18 07:51> - Discharge Clinical Impression: Hematemesis Qualifiers: Nausea presence: with nausea Qualified Code(s): K92.0 - Hematemesis Condition: Stable Disposition: HOME, SELF-CARE Additional Instructions: Upper Gastrointestinal Bleeding You have had bleeding from the upper intestinal tract (the stomach or first part of the small intestine). The bleeding is not severe enough to warrant hospitalization. If bleeding occurs simply from the trauma of recurrent vomiting, no further evaluation is necessary. However, if there is evidence of a tumor or ulcer as the source of blood, further testing and treatment are necessary. If this has been recommended to you, it's important that you follow up as instructed. Usually, antacids or acid-suppressing drugs are given. Avoid alcohol, aspirin, and tobacco. Most patients are able to return to a normal diet. If you become lightheaded or weak, or vomit a large amount of blood or blackish material, or if you have black, tarry stool, call the doctor or return for re-evaluation at once. Prescriptions: Ranitidine HCl [Zantac 75 mg Tablet] 75 mg PO BID #30 tablet Referrals: DAYNA CARBAJAL MD [ACTIVE STAFF] - Follow up in 1 week Scribe Attestation: 12/17/18 07:51 I personally performed the services described in the documentation, reviewed and edited the documentation which was dictated to the scribe in my presence, and it accurately records my words and actions. (JERRY TREVIÑO) Scribe Documentation - Scribe Written by Colin:: Colin Leos, 12/17/2018 [id number] acting as scribe for :: Gokul <SEVERIANO BERMEO - Last Filed: 12/17/18 04:58>
[2018-12-17] MEDS ORDERED: PANTOPRAZOLE SODIUM 40 MG VIAL IV PRN (04:20)
[2018-12-17] MEDS ORDERED: PANTOPRAZOLE SODIUM 40 MG VIAL IV ONE (04:20)
[2018-12-17] MEDS: ONDANSETRON HCL INJ/PF 4 MG/2 ML SDV IV ONE ×2 (04:28→04:39)
[2018-12-17 05:59] LABS: ABSOLUTE EOSINOPHILS # (AUTO) 0.2 10^3/uL (0.0-0.6); ABSOLUTE LYMPHOCYTES (AUTO) 2.4 10^3/uL (0.5-4.7); ABSOLUTE MONOCYTES (AUTO) 0.7 10^3/uL (0.1-1.4); ABSOLUTE NEUT (AUTO) 3.2 10^3/uL (1.7-8.2); BASOPHILS % (AUTO) 0.5 % (0-2); EOSINOPHILS % (AUTO) 2.7 % (0-6); HEMATOCRIT 41.5 % (37.9-51.0); HEMOGLOBIN 14.2 g/dL (13.5-17.0); LYMPHOCYTES % (AUTO) 36.8 % (13-45); MEAN CORPUSCULAR HEMOGLOBIN 29.8 pg (27.0-33.4); MEAN CORPUSCULAR HGB CONC 34.2 g/dL (32.0-36.0); MEAN CORPUSCULAR VOLUME 87 fl (80-97); MONOCYTES % (AUTO) 11.3 % (3-13); PLATELET COUNT 243 10^3/uL (150-450); RED BLOOD COUNT 4.75 10^6/uL (4.35-5.55); RED CELL DISTRIBUTION WIDTH 14.6 % (11.5-14.0); SEGMENTED NEUTROPHILS % (AUTO) 48.7 % (42-78); TOTAL CELLS COUNTED % (AUTO) 100 %; WHITE BLOOD COUNT 6.6 10^3/uL (4.0-10.5)
[2018-12-17 06:09] LABS: ALANINE AMINOTRANSFERASE 31 U/L (21-72); ALBUMIN 4.6 g/dL (3.5-5.0); ALKALINE PHOSPHATASE 90 U/L (38-126); ANION GAP 14 (5-19); ASPARTATE AMINO TRANSFERASE 24 U/L (17-59); BILIRUBIN,DIRECT 0.4 mg/dL (0.0-0.4); BILIRUBIN,TOTAL 0.5 mg/dL (0.2-1.3); BLOOD UREA NITROGEN 13 mg/dL (7-20); CALCIUM 9.1 mg/dL (8.4-10.2); CARBON DIOXIDE 28 mmol/L (22-30); CHLORIDE 102 mmol/L (98-107); GLUCOSE 110 mg/dL (75-110); LIPASE 140.5 U/L (23-300); POTASSIUM 3.1 mmol/L (3.6-5.0); SODIUM 143.6 mmol/L (137-145); TOTAL PROTEIN 7.6 g/dL (6.3-8.2)
[2018-12-17 07:47] VITALS: BP 149/103
== END 2018-12-17 07:35 | disposition home or self-care (01) ==
LOC: ER 03:28
DX: K92.0 Hematemesis (principal); R51 Headache; I10 Essential (primary) hypertension
CPT/HCPCS: 36415; 83690; 85025; 80053; S0164; J2405

== ENCOUNTER 2019-01-15 07:33 | Emergency (ER) | payer SELFPAY ==
[2019-01-15] MEDS ORDERED: DEXAMETHASONE SOD PHOS INJ 10 MG/1 ML VIAL IM ONE (08:13)
[2019-01-15] MEDS ORDERED: KETOROLAC TROMETHAMINE 60 MG/2 ML SDV IM ONE (08:13)
--- NOTE | 2019-01-15 08:20 | ER Document Report ---
HPI - HPI Time Seen by Provider: 01/15/19 07:45 Pain Level: 5 Notes: Patient is a 33-year-old male who presents to the emergency department chief complaint of low back pain. Patient reports history of same, states this time the flareup started yesterday. Denies any recent injury. Patient reports pain is in the left paraspinous area with radiation down into the left buttock and all the way down to the posterior knee. Patient denies any vertebral tenderness. Denies any bowel incontinence, reports he is able to urinate without difficulty, denies any saddle anesthesia. Patient reports that he was seen in the emergency department in August in [place] for this was prescribed hydrocodone and given a shot of Toradol. Patient reports a shot of Toradol helped significantly. He states that he took his last hydrocodone this morning which only provided a small amount of relief. Patient denies any history of diabetes, reports hypertension. - REPRODUCTIVE Reproductive: DENIES: : Past Medical History - General Information source: Patient - Social History Smoking Status: Never Smoker Frequency of alcohol use: None Drug Abuse: None Family History: Reviewed & Not Pertinent, DM, Hypertension Patient has suicidal ideation: No Patient has homicidal ideation: No - Past Medical History Cardiac Medical History: Reports: Hx Hypertension - on meds Denies: Hx Coronary Artery Disease, Hx Heart Attack Pulmonary Medical History: Denies: Hx Asthma, Hx Bronchitis, Hx COPD, Hx Pneumonia Neurological Medical History: Denies: Hx Cerebrovascular Accident, Hx Seizures Renal/ Medical History: Denies: Hx Peritoneal Dialysis Musculoskeletal Medical History: Denies Hx Arthritis, Reports Hx Musculoskeletal Deformity Traumatic Medical History: Reports: Hx Fractures - ulnar Past Surgical History: Reports: Hx Orthopedic Surgery - orif left ulnar - Immunizations Immunizations up to date: No Hx Diphtheria, Pertussis, Tetanus Vaccination: Yes Vertical Provider Document - CONSTITUTIONAL Notes: PHYSICAL EXAMINATION: GENERAL: Well-appearing, well-nourished and in no acute distress. HEAD: Atraumatic, normocephalic. EYES: Pupils equal round extraocular movements intact, conjunctiva are normal. ENT: Nares patent NECK: Normal range of motion LUNGS: No respiratory distress Musculoskeletal: Normal range of motion tenderness to palpation to lumbar paraspinous area, no vertebral tenderness no step-off or deformity., NEUROLOGICAL: Normal speech, normal gait. PSYCH: Normal mood, normal affect. SKIN: Warm, Dry, normal turgor, no rashes or lesions noted. - INFECTION CONTROL TRAVEL OUTSIDE OF THE [place] IN LAST 30 DAYS: No Course - Re-evaluation Re-evalutation: Examination is consistent with exacerbation of acute on chronic back pain. No red flag signs noted such as bowel incontinence, urinary retention or saddle anesthesia. Patient has not had any recent injury or fever. Patient will be given dose of IM Decadron and IM Toradol and discharged home. Discussed importance of stretching exercises for the back. Patient verbalizes understanding of same. Patient will also be given a refill of his blood pressure medications as he states he only has a couple of days left. - Vital Signs Vital signs: Temp Pulse Resp BP Pulse Ox 98.2 F 83 14 176/112 H 96 01/15/19 07:39 01/15/19 07:39 01/15/19 07:39 01/15/19 07:39 01/15/19 07:39 Discharge - Discharge Clinical Impression: Back pain Qualifiers: Back pain location: low back pain Chronicity: chronic Back pain laterality: left Sciatica presence: with sciatica Sciatica laterality: sciatica of left side Qualified Code(s): M54.42 - Lumbago with sciatica, left side Condition: Stable Disposition: HOME, SELF-CARE Additional Instructions: LOW BACK PAIN: Three out of every four people will have an episode of disabling back pain during their lifetime. Most commonly the pain is due to straining of the muscles and ligaments in the low back. Usual treatment includes: (1) Rest on a firm surface. Avoid lying on your stomach. (2) Ice pack the painful area. After a few days, gentle heat may be used intermittently to relax the area, or ice packs can be continued. (3) Medication may be needed -- muscle relaxers and antiinflammatory medicines are commonly used. (4) As the back improves, exercises are prescribed to strengthen the back and abdominal muscles. Your doctor will advise you on the proper care for your back at each stage in your recovery. You may be better in a few days -- or healing may take several weeks. If new symptoms of a "herniated disc" (radiation of pain, numbness, or tingling down the back of the leg or weakness in the leg) occur, you should be re-examined. Further testing may be necessary. PAIN MEDICATION INJECTION: You have received an injection of a pain medication. You should experience significant pain relief within 45 minutes. If this injection was a narcotic -- it will impair your judgement, slow your reaction time and make you sleepy (as well as relieve your pain). Narcotics also can cause nausea. You should not drive, work with machinery, or perform any task requiring mental alertness until all effects of the medication are gone -- six to eight hours. Do not take any alcohol, or sedatives, and do not take any other medication without checking with your physician. Toradol Injection You have been given an injection of ketorolac tromethamine (Toradol). This is an excellent, safe drug for pain control. It also has potent antiinflammatory action. You should have significant pain relief within about one hour. Toradol is not addicting and is non-sedating. It does not interfere with driving or work. Call or return if you develop itching, hives, shortness of breath, or rash. ICE PACKS: Apply ice packs frequently against the painful area. Many different schedules are recommended, such as "20 minutes on, 20 minutes off" or "one hour ice, two hours rest." If you need to work, you may need to go longer between ice treatments. You should plan to have the area ice packed AT LEAST one fourth of the time. The ice should be applied over the wrap, tape, or splint, or over a layer of cloth -- not directly against the skin. Some ice bags have a built-in cloth and can be put directly on the skin. WARM PACKS: After approximately two days, apply gentle heat (such as a heating pad or hot water bottle) for about 20 to 30 minutes about every two hours -- at least four times daily. Warmth and elevation will help you make a more rapid recovery, and will ease the pain considerably. Do not use HOT heat, and never apply heat for longer than 30 minutes. The continuous heat can invisibly damage skin and muscles -- even when no burn is seen on the surface. Damaged muscles can make you MORE sore. FOLLOW-UP CARE: If you have been referred to a physician for follow-up care, call the physicians office for an appointment as you were instructed or within the next two days. If you experience worsening or a significant change in your symptoms, notify the physician immediately or return to the Emergency Department at any time for re-evaluation. Please take medication as prescribed. You can take the Toradol every 6 hours until it is done. Please do not take ibuprofen while taking Toradol. These 2 medications are in a similar class. It is important to also do some stretching exercises to help your back. Please follow-up with primary care. Prescriptions: Ketorolac Tromethamine [Toradol 10 mg Tablet] 10 mg PO Q6HP PRN #20 tablet PRN Reason: Ibuprofen [Motrin 800 mg Tablet] 800 mg PO Q8H PRN #30 tab PRN Reason: Lisinopril/Hydrochlorothiazide [Lisinopril-Hctz 20-25 mg Tab] 1 each PO DAILY #30 tablet Forms: Return to Work
[2019-01-15 08:57] VITALS: BP 158/91
== END 2019-01-15 08:57 | disposition home or self-care (01) ==
LOC: ER 07:33
DX: M54.42 Lumbago with sciatica, left side (principal); I10 Essential (primary) hypertension
CPT/HCPCS: 99283; J1885; J1100

== ENCOUNTER 2019-01-18 20:03 | Emergency (ER) | payer SELFPAY ==
[2019-01-18] MEDS ORDERED: DIPHENHYDRAMINE HCL 50 MG/ML VIAL IV ONE (20:42)
[2019-01-18] MEDS ORDERED: KETOROLAC TROMETHAMINE INJ/PF 30 MG/1 ML SDV IV ONE (20:42)
[2019-01-18] MEDS ORDERED: PROCHLORPERAZINE EDISYLATE INJ 10 MG/2 ML VIAL IV ONE (20:42)
[2019-01-18] MEDS ORDERED: NORMAL SALINE 1000 ML 1,000 ML IV ONE (20:43)
--- NOTE | 2019-01-18 20:48 | ER Document Report ---
ED Medical Screen (RME) - General Chief Complaint: Headache Stated Complaint: HEADACHE Time Seen by Provider: 01/18/19 20:38 Mode of Arrival: Ambulatory Information source: Patient Notes: Patient is a 33-year-old male who presents the emergency department with headache and elevated blood pressure. Patient reports his headache started approximately 10:00 this morning, had a gradual onset and is located in the front of his head. He reports associated nausea with vomiting. He does report has had headaches similar to this in the past however he states this is 1 of the worst. He has a history of hypertension, takes lisinopril with HCTZ, does state that he took his morning dose late today. Exam: Alert, oriented with no acute distress noted. I have greeted and performed a rapid initial assessment of this patient. A comprehensive ED assessment and evaluation of the patient, analysis of test results and completion of the medical decision making process will be conducted by additional ED providers. Dictation of this chart was performed using voice recognition software; therefore, there may be some unintended grammatical errors. TRAVEL OUTSIDE OF THE [place] IN LAST 30 DAYS: No - Related Data Allergies/Adverse Reactions: No Known Allergies Allergy (Verified 01/15/19 07:33) Past Medical History - Social History Chew tobacco use (# tins/day): No Frequency of alcohol use: None Drug Abuse: None Family history: Hypertension - Past Medical History Cardiac Medical History: Reports: Hx Hypertension - on meds Denies: Hx Coronary Artery Disease, Hx Heart Attack Pulmonary Medical History: Denies: Hx Asthma, Hx Bronchitis, Hx COPD, Hx Pneumonia Neurological Medical History: Denies: Hx Cerebrovascular Accident, Hx Seizures Renal/ Medical History: Denies: Hx Peritoneal Dialysis Musculoskeltal Medical History: Denies Hx Arthritis, Reports Hx Musculoskeletal Deformity Traumatic Medical History: Reports: Hx Fractures - ulnar Past Surgical History: Reports: Hx Orthopedic Surgery - orif left ulnar - Immunizations Immunizations up to date: No Hx Diphtheria, Pertussis, Tetanus Vaccination: Yes Physical Exam - Vital signs Vitals: Temp Pulse Resp BP Pulse Ox 98 F 78 16 177/131 H 100 01/18/19 20:03 01/18/19 20:03 01/18/19 20:03 01/18/19 20:03 01/18/19 20:03 Course - Vital Signs Vital signs: Temp Pulse Resp BP Pulse Ox 98 F 78 16 177/131 H 100 02/19/19 20:03 01/18/19 20:24 01/18/19 20:24 01/18/19 20:24 01/18/19 20:24
--- NOTE | 2019-01-18 21:10 | RADIOLOGY REPORT (SQ) ---
EXAM DESCRIPTION: CT HEAD WITHOUT IV CONTRAST COMPLETED DATE/TME: 01/18/2019 20:38 CLINICAL HISTORY: 33 years, Male, headache, elevated BP COMPARISON: None. TECHNIQUE: 201 Images stored on PACS. All CT scanners at this facility use dose modulation, iterative reconstruction, and/or weight based dosing when appropriate to reduce radiation dose to as low as reasonably achievable (ALARA). [facility]: Dose Right [facility]: CareDose [facility]: Dose Right [facility]: Teradose 4D [facility]: [email or web address] LIMITATIONS: None. FINDINGS: The globes are intact. Peroneal sinuses and mastoid air cells are unremarkable. No displaced or depressed skull fracture. No intra or extra-axial hemorrhage. CT is limited for evaluation of acute infarct. No CT evidence for large or territorial acute infarct. No mass, mass effect, or midline shift IMPRESSION: Negative exam TECHNICAL DOCUMENTATION: Quality ID # [id number]: Final reports with documentation of one or more dose reduction techniques (e.g., Automated exposure control, adjustment of the mA and/or kV according to patient size, use of iterative reconstruction technique) copyright 2011 [employer]- All Rights Reserved
--- NOTE | 2019-01-18 21:38 | ER Document Report ---
ED Headache - General Chief Complaint: Headache Stated Complaint: HEADACHE Time Seen by Provider: 01/18/19 21:38 Mode of Arrival: Ambulatory Information source: Patient Notes: HISTORY OF PRESENT ILLNESS: Patient is a 33-year-old male with a past medical history of hypertension who presents with "migraine headache." He denies recent fevers or chills, no head injuries. Patient had already been given medication before our encounter. Location: Global Onset: Sudden Provocation: Unknown Quality: Throbbing Radiation: None Severity: "Was severe, now is almost gone" Timing: Persistent but improving History of headaches: "Every now and then" Recent head injury: None Vision changes: None Trouble walking: None REVIEW OF SYSTEMS: CONSTITUTIONAL : Denies fever or chills, no sweats. Denies recent illness. EENT: Denies eye, ear, throat, or mouth pain or symptoms. Denies nasal or sinus congestion. CARDIOVASCULAR: Denies chest pain. RESPIRATORY: Denies cough, cold, or chest congestion. Denies shortness of breath, difficulty breathing, or wheezing. GASTROINTESTINAL: Denies abdominal pain. Denies nausea, vomiting, or diarrhea. Denies constipation. GENITOURINARY: Denies difficulty urinating, painful urination, burning, frequency, or blood in urine. MUSCULOSKELETAL: Denies body aches. Denies neck or back pain or joint pain or swelling. SKIN: Denies rash or skin lesions. HEMATOLOGIC : Denies easy bruising or bleeding. LYMPHATIC: Denies swollen, enlarged glands. NEUROLOGICAL: Positive for headaches. Denies altered mental status or loss of consciousness. Denies weakness or paralysis or loss of use of either side. Denies problems with gait or speech. Denies sensory or motor loss. PSYCHIATRIC: Denies anxiety or stress or depression. All other systems reviewed and negative. PHYSICAL EXAMINATION: GENERAL: Well-appearing, well-nourished and in no acute distress. HEAD: Atraumatic, normocephalic. No scalp deformity, depression, or crepitance. EYES: Pupils are 3 mm and equal/round/reactive to light, extraocular movements intact, sclera anicteric, conjunctiva are normal. ENT: Nares patent bilaterally, oropharynx clear without exudates or palatal petechia. Moist mucous membranes. No tonsil hypertrophy. NECK: Normal range of motion, supple without lymphadenopathy. LUNGS: Breath sounds present, equal, and clear to auscultation bilaterally. No wheezes, rales, or rhonchi. HEART: Regular rate and rhythm without murmurs, rubs, or gallops. 2+ peripheral pulses. Normal capillary refill. ABDOMEN: Soft, nontender, nondistended. Normoactive bowel sounds. No guarding, no rebound. No masses appreciated. BACK: Normal contour, no midline tenderness. Rectal exam deferred. EXTREMITIES: Normal range of motion, no pitting or edema. No cyanosis. NEUROLOGICAL: No focal neurological deficits. Cranial nerves III-XII grossly intact. Moves all extremities spontaneously and on command. PSYCH: Normal mood, normal affect. No suicidal thoughts/ideations. No homicid al thoughts/ideations. No hallucinations. SKIN: Warm, dry, normal turgor, no rashes or lesions noted. ASSESSMENT AND PLAN: This patient is a 33-year-old male who presents with headache in the setting of elevated blood pressure that is now resolved after treatment. 1. Will discharge the patient home with return precautions and follow-up. Patient will be provided with a prescription for clonidine and Fioricet. 2. Patient voices both understanding and agreeing with the plan. TRAVEL OUTSIDE OF THE [place] IN LAST 30 DAYS: No - Related Data Allergies/Adverse Reactions: No Known Allergies Allergy (Verified 01/15/19 07:33) Past Medical History - General Information source: Patient - Social History Smoking Status: Unknown if Ever Smoked Chew tobacco use (# tins/day): No Frequency of alcohol use: None Drug Abuse: None Lives with: Family Family History: Reviewed & Not Pertinent, DM, Hypertension Patient has suicidal ideation: No Patient has homicidal ideation: No - Past Medical History Cardiac Medical History: Reports: Hx Hypertension - on meds Denies: Hx Coronary Artery Disease, Hx Heart Attack Pulmonary Medical History: Reports: None Denies: Hx Asthma, Hx Bronchitis, Hx COPD, Hx Pneumonia EENT Medical History: Reports: None Neurological Medical History: Reports: None. Denies: Hx Cerebrovascular Accident, Hx Seizures Endocrine Medical History: Reports: None Renal/ Medical History: Reports: None. Denies: Hx Peritoneal Dialysis Malignancy Medical History: Reports None GI Medical History: Reports: None Musculoskeletal Medical History: Denies Hx Arthritis, Reports Hx Musculoskeletal Deformity Skin Medical History: Reports None Psychiatric Medical History: Reports: None Traumatic Medical History: Reports: Hx Fractures - ulnar Infectious Medical History: Reports: None Past Surgical History: Reports: Hx Orthopedic Surgery - orif left ulnar - Immunizations Immunizations up to date: No Hx Diphtheria, Pertussis, Tetanus Vaccination: Yes Physical Exam - Vital signs Vitals: Temp Pulse Resp BP Pulse Ox 98 F 78 16 177/131 H 100 01/18/19 20:03 01/18/19 20:03 01/18/19 20:03 01/18/19 20:03 01/18/19 20:03 Course - Re-evaluation Re-evalutation: 01/18/19 22:40 Patient states that he "just wants to go home" now his headache is resolved and his blood pressure has come down spontaneously. He currently has no complaint. He will be discharged home with return precautions and follow-up with his primary physician. Patient voices both understanding and agreeing with plan. - Vital Signs Vital signs: Temp Pulse Resp BP Pulse Ox 97.5 F 74 16 147/117 H 97 01/18/19 21:18 01/18/19 22:57 01/18/19 22:57 01/18/19 22:57 01/18/19 22:57 - Diagnostic Test Radiology reviewed: Image reviewed, Reports reviewed Discharge - Discharge Clinical Impression: Uncontrolled hypertension Migraine headache Qualifiers: Migraine type: without aura Status migrainosus presence: without status migrainosus Intractability: not intractable Qualified Code(s): G43.009 - Migraine without aura, not intractable, without status migrainosus Condition: Good Disposition: HOME, SELF-CARE Instructions: Headache ([facility]), High Blood Pressure ([facility]) Additional Instructions: You have been evaluated in the Emergency Department for headache and high blood pressure. While here, you were given medications and your headache is now resolved. Please follow-up with your primary physician as instructed in 1 week to be rechecked. You have been prescribed medications, please take these as instructed. Return to the Emergency Department if you experience vision changes, trouble walking, chest pain, shortness of breath, or any other concerning symptoms. Prescriptions: Butalbital/Aspirin/Caffeine [Fifbiv-Bnfveaj-Nohvk 50-325-40] 1 each PO Q6HP PRN #30 tablet PRN Reason: For Headache Ondansetron [Zofran Odt 4 mg Tablet] 1 tab PO Q6HP PRN #30 tab.rapdis PRN Reason: For Nausea/Vomiting Clonidine HCl [Catapres 0.1 mg Tablet] 0.1 mg PO Q12 #60 tablet Print Language: Bengali
[2019-01-18 23:00] VITALS: BP 147/117
== END 2019-01-18 23:04 | disposition home or self-care (01) ==
LOC: ER 20:03
DX: G43.009 Migraine without aura, not intractable, without status migrainosus (principal); I10 Essential (primary) hypertension
CPT/HCPCS: 99284; 96361; 96374; 96375; 70450; J1200; J1885; J0780; J7030

== ENCOUNTER 2019-04-26 01:38 | Emergency (ER) | payer SELFPAY ==
[2019-04-26] MEDS ORDERED: LIDOCAINE 5% (700 MG) TRANSDERMAL ADH..PATCH TP ONE (02:15)
[2019-04-26] MEDS ORDERED: DEXAMETHASONE SOD PHOS INJ 10 MG/1 ML VIAL IM ONE (02:15)
[2019-04-26] MEDS ORDERED: KETOROLAC TROMETHAMINE 60 MG/2 ML SDV IM ONE (02:15)
[2019-04-26] MEDS ORDERED: CYCLOBENZAPRINE HCL 10 MG TABLET PO ONE (02:16)
--- NOTE | 2019-04-26 02:22 | ER Document Report ---
HPI - HPI Time Seen by Provider: 04/26/19 02:01 Pain Level: 4 Notes: Patient is a 33-year-old male presenting to the emergency department with chief complaint of low back pain. Patient reports long-standing history of chronic back pain and sciatica. He has been seen in this emergency department for the same symptoms. He reports his back pain started approximately 6 hours prior to arrival. He reports pain in his right lower back with radiation down into his right buttocks. He denies any bowel or bladder incontinence, urinary retention or saddle anesthesia. Patient has not been ill lately has not had fevers, nausea, vomiting or diarrhea. Denies any known injury but he does report that he does a lot of heavy lifting at work. - REPRODUCTIVE Reproductive: DENIES: : Past Medical History - General Information source: Patient - Social History Smoking Status: Never Smoker Chew tobacco use (# tins/day): No Frequency of alcohol use: None Drug Abuse: None Family History: Reviewed & Not Pertinent, DM, Hypertension Patient has suicidal ideation: No Patient has homicidal ideation: No - Past Medical History Cardiac Medical History: Reports: Hx Hypertension - on meds Denies: Hx Coronary Artery Disease, Hx Heart Attack Pulmonary Medical History: Denies: Hx Asthma, Hx Bronchitis, Hx COPD, Hx Pneumonia Neurological Medical History: Denies: Hx Cerebrovascular Accident, Hx Seizures Renal/ Medical History: Denies: Hx Peritoneal Dialysis Musculoskeletal Medical History: Denies Hx Arthritis, Reports Hx Musculoskeletal Deformity Traumatic Medical History: Reports: Hx Fractures - ulnar Past Surgical History: Reports: Hx Orthopedic Surgery - orif left ulnar - Immunizations Immunizations up to date: No Hx Diphtheria, Pertussis, Tetanus Vaccination: Yes Vertical Provider Document - CONSTITUTIONAL Notes: PHYSICAL EXAMINATION: GENERAL: Well-appearing, well-nourished and in no acute distress. HEAD: Atraumatic, normocephalic. EYES: Pupils equal round extraocular movements intact, conjunctiva are normal. ENT: Nares patent NECK: Normal range of motion LUNGS: No respiratory distress Musculoskeletal: Normal range of motion, tenderness to palpation to lumbar paraspinous muscles on the right side, no vertebral tenderness, step-off or deformity. NEUROLOGICAL: Normal speech, normal gait. PSYCH: Normal mood, normal affect. SKIN: Warm, Dry, normal turgor, no rashes or lesions noted. - INFECTION CONTROL TRAVEL OUTSIDE OF THE [place] IN LAST 30 DAYS: No Course - Re-evaluation Re-evalutation: Patient's physical as well as history are most consistent with sciatica. Patient will be treated symptomatically. Patient has no red flag signs of cauda equina as outlined in the HPI. Patient is requesting a refill on his antihypertensives, states he has not been on them for 2 months. Patient does have mild hypertension at time of arrival. Will refill his blood pressure medication and give him information on the [facility]. ED return precautions were discussed and patient verbalized understanding and agreement with same. - Vital Signs Vital signs: Temp Pulse Resp BP Pulse Ox 98.5 F 69 18 158/93 H 100 04/26/19 01:39 04/26/19 01:39 04/26/19 01:39 04/26/19 01:39 04/26/19 01:39 Discharge - Discharge Clinical Impression: Lumbar back pain Sciatica Qualifiers: Laterality: right Qualified Code(s): M54.31 - Sciatica, right side Condition: Stable Disposition: HOME, SELF-CARE Additional Instructions: You have been seen in the Emergency Department (ED) today for back pain. Your workup and exam have not shown any acute abnormalities and you are likely suffering from muscle strain or possible problems with your discs, but there is no treatment that will fix your symptoms at this time. Please take the medication that has been prescribed as directed. You should also purchase a local lidocaine cream such as "aspercreme with lidocaine" and use per bottle instructions to the affected area. Please take ibuprofen 600 mg every 6 hours for pain and inflammation. Apply heat to the area as often as you are able. Continue to keep active and avoid prolonged periods of bed rest. Please follow up with your doctor as soon as possible regarding today's ED visit and your back pain. Return to the ED for worsening back pain, fever, weakness or numbness of either leg, or if you develop either (1) an inability to urinate or have bowel movements, or (2) loss of your ability to control your bathroom functions (if you start having "accidents"), or if you develop other new symptoms that concern you.concern you. Prescriptions: Cyclobenzaprine HCl [Flexeril 10 mg Tablet] 10 mg PO TIDP PRN #15 tab PRN Reason: Lidocaine [Lidoderm 5% (700 mg) Transdermal Patch] 1 patch TP DAILY #30 adh..patch Lisinopril/Hydrochlorothiazide [Lisinopril-Hctz 20-25 mg Tab] 1 each PO DAILY #30 tablet
[2019-04-26 02:53] VITALS: BP 158/97
== END 2019-04-26 02:53 | disposition home or self-care (01) ==
LOC: ER 01:38
DX: M54.31 Sciatica, right side (principal); I10 Essential (primary) hypertension
CPT/HCPCS: 99283; 96372; J1885; J1100

== ENCOUNTER 2019-06-09 19:11 | Emergency (ER) | payer SELFPAY ==
--- NOTE | 2019-06-09 22:13 | ER Document Report ---
ED General - General Chief Complaint: Passed Out Prior to Arrival Stated Complaint: FAINTING Time Seen by Provider: 06/09/19 22:11 Notes: 33-year-old outpatient to the emergency department after passing out. Patient states that he has been sick for approximately 1 week. Did not feel good and started coughing. Passed out. Lost his bowel and bladder function at that time. States that he was seen at another ER approximately 1 week ago and was diagnosed with a viral syndrome. Was prescribed some cough medication. Continues to have shortness of breath and cough. TRAVEL OUTSIDE OF THE [place] IN LAST 30 DAYS: No - HPI Onset: Just prior to arrival Onset/Duration: Sudden Quality of pain: No pain Severity: Moderate Pain Level: Denies Associated symptoms: Body/muscle aches, Chills, Nonproductive cough, Shortness of breath - Related Data Allergies/Adverse Reactions: No Known Allergies Allergy (Verified 01/15/19 07:33) Past Medical History - General Information source: Patient - Social History Smoking Status: Never Smoker Frequency of alcohol use: None Drug Abuse: None Lives with: Spouse/Significant other Family History: Reviewed & Not Pertinent, DM, Hypertension - Past Medical History Cardiac Medical History: Reports: Hx Hypertension - on meds Denies: Hx Coronary Artery Disease, Hx Heart Attack Pulmonary Medical History: Denies: Hx Asthma, Hx Bronchitis, Hx COPD, Hx Pneumonia Neurological Medical History: Denies: Hx Cerebrovascular Accident, Hx Seizures Renal/ Medical History: Denies: Hx Peritoneal Dialysis Musculoskeletal Medical History: Denies Hx Arthritis, Reports Hx Musculoskeletal Deformity Traumatic Medical History: Reports: Hx Fractures - ulnar Past Surgical History: Reports: Hx Orthopedic Surgery - orif left ulnar - Immunizations Immunizations up to date: No Hx Diphtheria, Pertussis, Tetanus Vaccination: Yes Review of Systems - Review of Systems Notes: Constitutional: denies: Chills, Diaphoresis, Fever, Malaise, Weakness EENT: denies: Eye discharge, Blurred vision, Tearing, Double vision, Nose congestion, Nose discharge, Throat swelling, Mouth pain Cardiovascular: denies: Palpitations, Heart racing, Orthopnea, Dyspnea, Chest pain Respiratory: Complaining of cough, wheeze, mild shortness of breath. Gastrointestinal: denies: Abdominal pain, Diarrhea, Nausea, Vomiting, Black stools, bright red blood in stool Genitourinary: denies: Burning, Dysuria, Discharge, Frequency, Flank pain, Hematuria Musculoskeletal: denies: Joint pain, Joint swelling, Muscle pain, Muscle stiffness, back pain Hematologic/Lymphatic: denies: Anemia, Easy bleeding, Easy bruising, Blood clots Neurological/Psychological: denies: Confusion, Dementia, Depression, Loss of consciousness Skin: No lesions, no masses, no skin breakdown, no abscesses Physical Exam - Vital signs Vitals: Temp Pulse Resp BP Pulse Ox 97.6 F 80 16 126/93 H 97 06/09/19 19:45 06/09/19 19:45 06/09/19 19:45 06/09/19 19:45 06/09/19 19:45 Interpretation: Normal - General General appearance: Appears well, Alert - HEENT Head: Normocephalic, Atraumatic Eyes: Normal Pupils: PERRL - Respiratory Respiratory status: No respiratory distress Chest status: Nontender Breath sounds: Rales, Rhonchi, Wheezing Chest palpation: Normal - Cardiovascular Rhythm: Regular Heart sounds: Normal auscultation Murmur: No - Abdominal Inspection: Normal Distension: No distension Bowel sounds: Normal Tenderness: Nontender Organomegaly: No organomegaly - Back Back: Normal, Nontender - Extremities General upper extremity: Normal inspection, Nontender, Normal color, Normal ROM, Normal temperature General lower extremity: Normal inspection, Nontender, Normal color, Normal ROM, Normal temperature, Normal weight bearing. No: Teddy's sign - Neurological Neuro grossly intact: Yes Cognition: Normal Orientation: AAOx4 Tarkio Coma Scale Eye Opening: Spontaneous Tarkio Coma Scale Verbal: Oriented Monty Coma Scale Motor: Obeys Commands Tarkio Coma Scale Total: 15 Speech: Normal Motor strength normal: LUE, RUE, LLE, RLE Sensory: Normal - Psychological Associated symptoms: Normal affect, Normal mood - Skin Skin Temperature: Warm Skin Moisture: Dry Skin Color: Normal Course - Re-evaluation Re-evalutation: 06/09/19 23:20 Chest X-Ray 06/09/19 22:23 IMPRESSION: 1. No acute pulmonary process identified. 06/09/19 23:21 Laboratory 06/09/19 06/09/19 06/09/19 20:54 20:54 20:54 WBC 4.0 RBC 5.52 Hgb 16.2 Hct 47.6 MCV 86 MCH 29.3 MCHC 34.0 RDW 13.7 Plt Count 191 Seg Neutrophils % 61.1 Lymphocytes % 20.8 Monocytes % 17.7 H Eosinophils % 0.0 Basophils % 0.4 Absolute Neutrophils 2.5 Absolute Lymphocytes 0.8 Absolute Monocytes 0.7 Absolute Eosinophils 0.0 Absolute Basophils 0.0 Sodium 135.3 L Potassium 2.9 L* Chloride 90 L Carbon Dioxide 36 H Anion Gap 9 BUN 20 Creatinine 1.70 H Est GFR ( Amer) 56 L Est GFR (Non-Af Amer) 46 L Glucose 116 H Calcium 9.0 Total Bilirubin 0.6 Direct Bilirubin 0.4 Neonat Total Bilirubin Not Reportable Neonat Direct Bilirubin Not Reportable Neonat Indirect Bili Not Reportable AST 60 H ALT 56 Alkaline Phosphatase 92 Creatine Kinase 822 H CK-MB (CK-2) 0.94 Troponin I 0.025 Total Protein 7.8 Albumin 4.5 Monotest 06/09/19 20:54 WBC RBC Hgb Hct MCV MCH MCHC RDW Plt Count Seg Neutrophils % Lymphocytes % Monocytes % Eosinophils % Basophils % Absolute Neutrophils Absolute Lymphocytes Absolute Monocytes Absolute Eosinophils Absolute Basophils Sodium Potassium Chloride Carbon Dioxide Anion Gap BUN Creatinine Est GFR ( Amer) Est GFR (Non-Af Amer) Glucose Calcium Total Bilirubin Direct Bilirubin Neonat Total Bilirubin Neonat Direct Bilirubin Neonat Indirect Bili AST ALT Alkaline Phosphatase Creatine Kinase CK-MB (CK-2) Troponin I Total Protein Albumin Monotest POSITIVE H 06/10/19 00:45 Patient with mononucleosis with positive screen and labs consistent with this. Did have a little bit of wheezing but cleared up with breathing treatments. Patient is getting fluids at this time. His potassium was low at 2.9 so this is being replaced as he was symptomatic with some muscle cramping. I have advised him on the disease course as he will more than likely he experiencing excessive tiredness and symptoms for quite some time. Patient is currently already on d isability for previous severe injury to his left arm. - Vital Signs Vital signs: Temp Pulse Resp BP Pulse Ox 99.0 F 80 15 155/92 H 97 06/09/19 22:01 06/09/19 19:45 06/10/19 01:01 06/10/19 01:01 06/10/19 01:01 - Laboratory Result Diagrams: 06/09/19 20:54 06/09/19 20:54 Laboratory results interpreted by me: 06/09/19 06/09/19 06/09/19 20:54 20:54 20:54 Monocytes % 17.7 H Sodium 135.3 L Potassium 2.9 L* Chloride 90 L Carbon Dioxide 36 H Creatinine 1.70 H Est GFR ( Amer) 56 L Est GFR (Non-Af Amer) 46 L Glucose 116 H AST 60 H Creatine Kinase 822 H Monotest POSITIVE H - EKG Interpretation by Me EKG shows normal: Sinus rhythm, Intervals, QRS Complexes, ST-T Waves Voltage: Consistant with [facility] Discharge - Discharge Clinical Impression: Mononucleosis syndrome, Hypokalemia Condition: Good Disposition: HOME, SELF-CARE Instructions: Mononucleosis ([facility]) Additional Instructions: Get plenty of rest. Drink plenty of fluid. Stay out of the hot sun. Know that this can take a very long time to get over. In the event that your symptoms are getting worse please return or follow-up with your regular doctor for repeat evaluation. Avoid any excessive work especially any contact sports. In the event that you develop abdominal pain you will need a repeat evaluation. Prescriptions: Albuterol Sulfate [Ventolin 0.083% Neb 2.5 mg/3 mL Ampul] 1 vial NEB Q4 5 Days #25 vial
[2019-06-09] MEDS ORDERED: ALBUTEROL SULFATE 0.083% NEB 2.5 MG/3 ML AMPUL NEB ONE (22:23)
[2019-06-09 22:38] LABS: ABSOLUTE LYMPHOCYTES (AUTO) 0.8 10^3/uL (0.5-4.7); ABSOLUTE MONOCYTES (AUTO) 0.7 10^3/uL (0.1-1.4); ABSOLUTE NEUT (AUTO) 2.5 10^3/uL (1.7-8.2); BASOPHILS % (AUTO) 0.4 % (0-2); HEMATOCRIT 47.6 % (37.9-51.0); HEMOGLOBIN 16.2 g/dL (13.5-17.0); LYMPHOCYTES % (AUTO) 20.8 % (13-45); MEAN CORPUSCULAR HEMOGLOBIN 29.3 pg (27.0-33.4); MEAN CORPUSCULAR VOLUME 86 fl (80-97); MONOCYTES % (AUTO) 17.7 % (3-13); PLATELET COUNT 191 10^3/uL (150-450); RED BLOOD COUNT 5.52 10^6/uL (4.35-5.55); RED CELL DISTRIBUTION WIDTH 13.7 % (11.5-14.0); SEGMENTED NEUTROPHILS % (AUTO) 61.1 % (42-78); TOTAL CELLS COUNTED % (AUTO) 100 %
[2019-06-09] MEDS ORDERED: KETOROLAC TROMETHAMINE INJ/PF 30 MG/1 ML SDV IV ONE (22:46)
[2019-06-09] MEDS ORDERED: NORMAL SALINE 1000 ML 1,000 ML IV ONE ×2 (22:46→23:23)
[2019-06-09] MEDS ORDERED: ACETAMINOPHEN 325 MG TABLET PO ONE (22:47)
[2019-06-09 22:52] LABS: ALANINE AMINOTRANSFERASE 56 U/L (21-72); ALBUMIN 4.5 g/dL (3.5-5.0); ALKALINE PHOSPHATASE 92 U/L (38-126); ANION GAP 9 (5-19); ASPARTATE AMINO TRANSFERASE 60 U/L (17-59); BILIRUBIN,DIRECT 0.4 mg/dL (0.0-0.4); BILIRUBIN,TOTAL 0.6 mg/dL (0.2-1.3); BLOOD UREA NITROGEN 20 mg/dL (7-20); CARBON DIOXIDE 36 mmol/L (22-30); CHLORIDE 90 mmol/L (98-107); CREATINE KINASE 822 U/L (55-170); GLUCOSE 116 mg/dL (75-110); SODIUM 135.3 mmol/L (137-145); TOTAL PROTEIN 7.8 g/dL (6.3-8.2)
[2019-06-09 22:54] LABS: POTASSIUM 2.9 mmol/L (3.6-5.0)
[2019-06-09 23:03] LABS: CREATINE KINASE MB 0.94 ng/mL (<4.55); TROPONIN I 0.025 ng/mL
--- NOTE | 2019-06-09 23:04 | RADIOLOGY REPORT (SQ) ---
EXAM DESCRIPTION: XR CHEST 2 VIEWS COMPLETED DATE/TME: 06/09/2019 22:23 CLINICAL HISTORY: cough COMPARISON: 12/06/2013 FINDINGS: Frontal and lateral views of the chest. The cardiomediastinal silhouette has normal size and contour. No consolidation, pneumothorax, or pleural effusion. Leads overlie the chest. No acute osseous abnormality. Upper abdominal soft tissues are unremarkable. IMPRESSION: 1. No acute pulmonary process identified.
[2019-06-09] MEDS ORDERED: POTASSI CL 20 MEQ/50 ML RIDER 20 MEQ/50 ML RTUPB IV ONE (23:24)
[2019-06-09] MEDS ORDERED: POTASSIUM CHLORIDE 10 MEQ CAPSULE.ER PO ONE (23:24)
[2019-06-10 02:20] VITALS: BP 145/90
--- NOTE | 2019-06-10 22:36 | EKG REPORT ---
SEVERITY:- ABNORMAL ECG - SINUS RHYTHM PROBABLE LEFT ATRIAL ABNORMALITY LEFT AXIS DEVIATION LEFT VENTRICULAR HYPERTROPHY ANTERIOR Q WAVES, POSSIBLY DUE TO [facility] PROLONGED QT INTERVAL : Confirmed by: Marielle Jansen MD 10-Jun-2019 22:36:07
== END 2019-06-10 02:19 | disposition home or self-care (01) ==
LOC: ER 19:11
DX: B27.90 Infectious mononucleosis, unspecified without complication (principal); E87.6 Hypokalemia; R55 Syncope and collapse; R05 Cough; R15.9 Full incontinence of feces; R32 Unspecified urinary incontinence; M79.10 Myalgia, unspecified site; R06.02 Shortness of breath; R06.2 Wheezing; I10 Essential (primary) hypertension
CPT/HCPCS: 93005; 99284; 96361; 96375; 96365; 96366; 36415; 82553; 82550; 85025; 86308; 80053; 84484; 71046; 93010; J1885; J3480; J7030 ×2

== ENCOUNTER 2019-11-25 09:04 | Emergency (ER) | payer SELFPAY ==
[2019-11-25] MEDS ORDERED: LIDOCAINE 5% (700 MG) TRANSDERMAL ADH..PATCH TP ONE (10:24)
[2019-11-25] MEDS ORDERED: KETOROLAC TROMETHAMINE 60 MG/2 ML SDV IM ONE (10:24)
[2019-11-25] MEDS ORDERED: CYCLOBENZAPRINE HCL 10 MG TABLET PO ONE (10:24)
[2019-11-25] MEDS ORDERED: DEXAMETHASONE SOD PHOS INJ 10 MG/1 ML VIAL IM ONE (10:25)
[2019-11-25] MEDS ORDERED: LISINOPRIL 10 MG TABLET PO ONE (10:27)
--- NOTE | 2019-11-25 10:27 | ER Document Report ---
HPI - HPI Time Seen by Provider: 11/25/19 10:16 Pain Level: 5 Notes: 34-year-old male patient presenting to the emergency department with acute on chronic back pain. Patient reports low back pain specifically on the left side that radiates down into his left buttock. Patient denies any loss of control of bowel or bladder. States this started flaring up yesterday. He does not have a primary care physician as he does not have insurance. He does not take any medi cations at home. - REPRODUCTIVE Reproductive: DENIES: : Past Medical History - General Information source: Patient - Social History Smoking Status: Never Smoker Frequency of alcohol use: None Drug Abuse: None Family History: Reviewed & Not Pertinent, DM, Hypertension Patient has suicidal ideation: No Patient has homicidal ideation: No - Past Medical History Cardiac Medical History: Reports: Hx Hypertension - on meds Denies: Hx Coronary Artery Disease, Hx Heart Attack Pulmonary Medical History: Denies: Hx Asthma, Hx Bronchitis, Hx COPD, Hx Pneumonia Neurological Medical History: Denies: Hx Cerebrovascular Accident, Hx Seizures Renal/ Medical History: Denies: Hx Peritoneal Dialysis Musculoskeletal Medical History: Denies Hx Arthritis, Reports Hx Musculoskeletal Deformity Traumatic Medical History: Reports: Hx Fractures - ulnar Past Surgical History: Reports: Hx Orthopedic Surgery - orif left ulnar - Immunizations Immunizations up to date: No Hx Diphtheria, Pertussis, Tetanus Vaccination: Yes Vertical Provider Document - CONSTITUTIONAL Notes: PHYSICAL EXAMINATION: GENERAL: Well-appearing, well-nourished and in no acute distress. HEAD: Atraumatic, normocephalic. EYES: Pupils equal round extraocular movements intact, conjunctiva are normal. ENT: Nares patent NECK: Normal range of motion LUNGS: No respiratory distress Musculoskeletal: Normal range of motion, tenderness to palpation in the left lumbar paraspinous region, no vertebral tenderness, step-off or deformity. NEUROLOGICAL: Face symmetric. Tongue protrudes midline. Extraocular motions intact. Pupils are 2 mm and equally reactive. Normal speech, normal gait. 5 out of 5 strength in both the distal and proximal upper and lower extremities bilaterally. Sensation is grossly intact throughout. Finger to nose testing normal. Pronator drift normal. PSYCH: Normal mood, normal affect. SKIN: Warm, Dry, normal turgor, no rashes or lesions noted. - INFECTION CONTROL TRAVEL OUTSIDE OF THE [place] IN LAST 30 DAYS: No Course - Re-evaluation Re-evalutation: Patient appears well, nontoxic, vital signs within normal limits. No red flag symptoms to suggest cauda equina. Patient with acute on chronic back pain. Patient will be medicated conservatively here in the emergency department with plans to discharge patient home, he needs to follow-up with primary care and or pain management for management of his chronic pain. Patient reports some improvement of his pain after administration of medicatio ns. He verbalizes understanding and agreement with plan to follow-up appropriately with primary care. - Vital Signs Vital signs: Temp Pulse Resp BP Pulse Ox 98.0 F 80 16 199/131 H 100 11/25/19 09:11 11/25/19 09:11 11/25/19 09:11 11/25/19 09:11 11/25/19 09:11 Discharge - Discharge Clinical Impression: Low back pain Qualifiers: Chronicity: chronic Back pain laterality: left Sciatica presence: unspecified whether sciatica present Qualified Code(s): M54.5 - Low back pain Hypertension Qualifiers: Hypertension type: unspecified Qualified Code(s): I10 - Essential (primary) hypertension Condition: Stable Disposition: HOME, SELF-CARE Additional Instructions: Chronic Back Pain Chronic back pain (pain persisting longer than three months) is a common problem. A medical evaluation can look for herniated disc, arthritis, osteoporosis, tumors, and infections. But at least half the time, there's no obvious treatable cause. Anxiety and depression tend to worsen back pain. Ibuprofen or other anti-inflammatory medicine can help. A heating pad, used for 15-20 minutes at a time, can ease pain. For this type of back pain, narcotic medicines should be avoided. Muscle relaxers are rarely helpful unless you're having spasms. Activity is important. Find an aerobic exercise program that your back can tolerate. Too much rest makes back pain worse. Specific back exercises are usually prescribed to strengthen the back and abdominal muscles. Often, a physical therapist can help. Avoid heavy lifting, working while bent over, or standing with both knees straight. Most back pain patients do better with a firm mattress. If new symptoms of a "herniated disc" (radiation of pain, numbness, or tingling down the back of the leg or weakness in the leg) occur, you should be re-examined. Your blood pressure was elevated today. It is very important that you start taking your blood pressure medication, I have prescribed you 3 months worth of blood pressure medication. This should be very inexpensive at your local pharmacy. Please use the prescription drug savings card that we have provided you. Please take all other medications as prescribed. [facility]. Return to the emergency department with any new or worsening symptoms. Prescriptions: Cyclobenzaprine HCl [Flexeril 10 mg Tablet] 10 mg PO TIDP PRN #20 tab PRN Reason: Lisinopril/Hydrochlorothiazide [Lisinopril-Hctz 20-25 mg Tab] 1 each PO DAILY #30 tablet Ibuprofen [Motrin 800 mg Tablet] 800 mg PO Q8H PRN #30 tab PRN Reason: Forms: Elevated Blood Pressure, Return to Work
[2019-11-25] MEDS ORDERED: HYDROCHLOROTHIAZIDE 25 MG TABLET PO ONE (10:28)
[2019-11-25 11:04] VITALS: BP 168/112
== END 2019-11-25 11:05 | disposition home or self-care (01) ==
LOC: ER 09:04
DX: G89.29 Other chronic pain (principal); M54.5 Low back pain; I10 Essential (primary) hypertension
CPT/HCPCS: 99283; 96372; J1885; J1100

== ENCOUNTER 2020-06-21 06:35 | Emergency (ER) | payer SELFPAY ==
[2020-06-21 06:43] VITALS: BP 159/115
[2020-06-21] MEDS ORDERED: KETOROLAC TROMETHAMINE INJ/PF 30 MG/1 ML SDV IM ONE (08:26)
--- NOTE | 2020-06-21 08:33 | ER Document Report ---
ED General - General Chief Complaint: Leg Pain Stated Complaint: FLANK PAIN RIGHT SIDE Time Seen by Provider: 06/21/20 08:08 Notes: 35-year-old male with past medical history of sciatica and hypertension presenting today with right-sided sciatica pain starting 2 days ago. States that he has had sciatica for many years but does not quantify the number of years. Patient states that the pain starts at his buttocks and radiates down to the front of his right leg. He denies any numbness or tingling. States his bilateral lower back also hurts occasionally. He denies any pain with urination or blood in his urine. Typically takes ibuprofen for his pain but he ran out of the medication a couple of days ago. He denies any fevers chills shortness of breath chest pain or additional symptoms at this time. TRAVEL OUTSIDE OF THE [place] IN LAST 30 DAYS: No - Related Data Allergies/Adverse Reactions: No Known Allergies Allergy (Verified 06/21/20 07:08) Home Medications: HTN MEDS Past Medical History - Social History Smoking Status: Former Smoker Frequency of alcohol use: None Drug Abuse: None Family History: Reviewed & Not Pertinent, DM, Hypertension - Past Medical History Cardiac Medical History: Reports: Hx Hypertension - on meds Denies: Hx Coronary Artery Disease, Hx Heart Attack Pulmonary Medical History: Denies: Hx Asthma, Hx Bronchitis, Hx COPD, Hx Pneumonia Neurological Medical History: Denies: Hx Cerebrovascular Accident, Hx Seizures Renal/ Medical History: Denies: Hx Peritoneal Dialysis Musculoskeletal Medical History: Denies Hx Arthritis, Reports Hx Musculoskeletal Deformity Traumatic Medical History: Reports: Hx Fractures - ulnar Past Surgical History: Reports: Hx Orthopedic Surgery - orif left ulnar - Immunizations Immunizations up to date: No Hx Diphtheria, Pertussis, Tetanus Vaccination: Yes Review of Systems - Review of Systems Constitutional: No symptoms reported EENT: No symptoms reported Cardiovascular: No symptoms reported Respiratory: No symptoms reported Gastrointestinal: No symptoms reported Genitourinary: No symptoms reported Musculoskeletal: See HPI Neurological/Psychological: No symptoms reported Physical Exam - Vital signs Vitals: Temp Pulse Resp BP Pulse Ox 98.0 F 88 20 159/115 H 100 06/21/20 06:42 06/21/20 06:42 06/21/20 06:42 06/21/20 06:42 06/21/20 06:42 Interpretation: Hypertensive. No: Tachycardic, Febrile - Notes Notes: Adult General: GENERAL: Alert, interacts well. No acute distress HEAD: Normocephalic, atraumatic EYES: Pupils equal, round and reactive to light. Extraocular movements intact. ENT: Airway patent. Nares patent NECK: Full range of motion. Supple. Trachea midline. No lymphadenopathy. LUNGS: Clear to auscultation bilaterally, no wheezes, rales, or rhonchi. No respiratory distress. Nontender chest wall. HEART: Regular rate and rhythm. No murmurs, rubs or gallops. ABDOMEN: Soft, nontender. Nondistended. (-) Sherwood sign. Bowel sounds present in all 4 quadrants. No rebound, guarding or masses. GENITOURINARY: Deferred EXTREMITIES: Right sided SI joint tenderness. Positive straight leg test on the right side. No thigh tenderness. Moves all 4 extremities spontaneously. No edema, normal radial and dorsal pedis pulses bilaterally. No cyanosis. BACK: Bilateral low back with tight paraspinal muscles. No cervical, thoracic, lumbar midline tenderness. No saddle anesthesia, normal distal neurovascular exam. Moves all extremities with full range of motion. NEUROLOGICAL: Alert and oriented x3. Normal speech. Strength 5/ 5 in all extremities. PSYCH: Normal affect, normal mood. SKIN: Warm, dry, normal turgor. No rashes or lesions noted. Course - Re-evaluation Re-evalutation: 06/21/20 08:32 Patient resting comfortably on his abdomen when I walk in the room. He has a cane on the floor. I suspect that patient does have a re-exacerbation of his sciatica based on physical exam and history. Patient states this is typical pain he gets when he has sciatica. Patient states that he usually gets the shot and goes home. During the middle of physical exam patient answers his phone. Is in no acute distress. Nontoxic. We will also give him baclofen as he says that Flexeril provides him no relief in his pain. Has no primary care provider. Has not taken his blood pressure medication this morning. Does not desire to have Toradol orally. States that this medication does not work. I reviewed his chart. He also received a shot of Decadron last time he presented for similar symptoms in addition to the Toradol injection. I will order this medication for him. I also discussed with him that he can continue take his ibuprofen. This medication can take OTC. I did discuss with the patient that he needs to follow-up with his primary care patient to better manage his chronic pain. She is running out of his blood pressure medication I will provide him a 3-month ruffin pply. Again I reiterated the patient should establish care with a primary care provider. Patient may return to the emergency department if he has worsening symptoms or development of new symptoms patient acknowledges and verbalizes understanding instructions and plan all questions answered. - Vital Signs Vital signs: Temp Pulse Resp BP Pulse Ox 98.0 F 88 20 159/115 H 100 06/21/20 06:42 06/21/20 06:42 06/21/20 06:42 06/21/20 06:42 06/21/20 06:42 Discharge - Discharge Clinical Impression: Sciatica Qualifiers: Laterality: right Qualified Code(s): M54.31 - Sciatica, right side Hypertension Qualifiers: Hypertension type: unspecified Qualified Code(s): I10 - Essential (primary) hypertension Condition: Stable Disposition: HOME, SELF-CARE Instructions: Chronic Back Pain ([facility]), High Blood Pressure ([facility]), Sciatica ([facility]) Additional Instructions: Please establish with a primary care provider so they can follow-up on your low back pain and monitor your hypertension. Please return to the emergency department for worsening symptoms or development of new symptoms. Prescriptions: Baclofen 5 mg PO TID 10 Days #30 tablet Ibuprofen [Ibu] 800 mg PO TID 10 Days #30 tablet Lisinopril/Hydrochlorothiazide [Lisinopril-Hctz 20-25 mg Tab] 1 each PO DAILY 90 Days #90 tablet Forms: Elevated Blood Pressure
[2020-06-21] MEDS ORDERED: DEXAMETHASONE SOD PHOS INJ 10 MG/1 ML VIAL IM ONE (08:53)
== END 2020-06-21 09:31 | disposition home or self-care (01) ==
LOC: ER 06:35
DX: M54.41 Lumbago with sciatica, right side (principal); G89.29 Other chronic pain; I10 Essential (primary) hypertension; Z79.899 Other long term (current) drug therapy; Z87.891 Personal history of nicotine dependence
CPT/HCPCS: 99283; 96372; J1885; J1100